=== PATIENT | female | born 1960 | race Caucasian/White ===

== ENCOUNTER → 2018-02-15 09:15 | Outpatient (REF) | payer MEDICAID, SELFPAY ==
[2018-02-15 11:27] LABS: Absolute Neutrophil Count 4.3 X10^3/uL (2.0-7.7); Basophil# 0.01 X10^3/uL; Basophil% 0.1 % (0-1); Eosinophil# 0.16 X10^3/uL; Eosinophils% 2.3 % (0-5); Hematocrit 45.7 % (37-47); Hemoglobin 14.8 g/dl (12.0-15.0); Mean Corp Hgb Conc 32.4 g/gl (32-36); Mean Corpuscular Hgb 29.6 pg (27.0-32.0); Mean Corpuscular Volume 91.4 fL (81-99); Mean Platelet Vol. 10.7 fl (6.2-12.0); Monocyte# 0.43 X10^3/uL; Monocyte% 6.1 % (0-10); Neutrophil % 61.4 % (47-70); Platelet Count 286 K/mm3 (150-450); RBC Distribution Width CV 13.5 % (11.6-14.6); RBC Distribution Width SD 44.2 fl (35.1-43.9)
[2018-02-15 11:30] LABS: POSITIVE DIFFERENTIAL NO
[2018-02-15 11:31] LABS: POSITIVE COUNT NO; POSITIVE MORPHOLOGY NO
[2018-02-15 11:57] LABS: AST(SGOT) 31 U/L (15-37); Alanine Aminotransfer ALT/SGPT 41 U/L (13-56); Albumin, Serum 3.3 g/dL (3.2-5.0); Alkaline Phosphatase 79 U/L (45-117); Anion Gap 11 (5-15); BUN 17 mg/dL (7-18); BUN/Creat Ratio 24.1 RATIO (10-20); Calcium,Total 8.8 mg/dL (8.5-10.1); Chloride 104 mmol/L (98-107); EST Glomerular Filtration Rate 91 mL/min (>60); Est Glom Filt Rate - Afr Amer 110 mL/min (>60); Globulin 3.4 g/dL (2.2-4.2); Glucose 118 mg/dL (74-106); Potassium 3.9 mmol/L (3.5-5.1); Protein, Total 6.7 g/dL (6.4-8.2); Sodium Level 144 mmol/L (136-145); Thyroid Stim Hormone (TSH) 0.76 uIU/mL (0.358-3.74)
== END ==
LOC: OLS.AVEB 09:15
PROVIDERS: Visit Provider Family Medicine
DX: E03.9 Hypothyroidism, unspecified (principal); R53.83 Other fatigue
CPT/HCPCS: 36415; 80053; 84443; 85025

== ENCOUNTER → 2018-05-16 08:00 | Outpatient (REF) | payer MEDICAID, SELFPAY ==
[2018-05-16 08:43] LABS: Absolute Lymphocyte Count 2.03 X10^3/ul (0.83-4.51); Absolute Neutrophil Count 5.3 X10^3/uL (2.0-7.7); Basophil# 0.02 X10^3/uL; Basophil% 0.2 % (0-1); Eosinophil# 0.19 X10^3/uL; Eosinophils% 2.4 % (0-5); Hematocrit 44.8 % (37-47); Hemoglobin 14.6 g/dl (12.0-15.0); Lymphocyte # 2.03 X10^3/ul (4.0); Lymphocyte % 25.2 % (19-41); Mean Corp Hgb Conc 32.6 g/gl (32-36); Mean Corpuscular Hgb 30.2 pg (27.0-32.0); Mean Corpuscular Volume 92.6 fL (81-99); Mean Platelet Vol. 10.5 fl (6.2-12.0); Monocyte# 0.52 X10^3/uL; Monocyte% 6.5 % (0-10); Neutrophil # 5.27 X10^3/uL (2.7-7.7); Neutrophil % 65.6 % (47-70); Platelet Count 266 K/mm3 (150-450); RBC Distribution Width CV 13.1 % (11.6-14.6); RBC Distribution Width SD 43.3 fl (35.1-43.9); Red Blood Count 4.84 M/mm3 (4.2-5.4)
[2018-05-16 08:47] LABS: POSITIVE COUNT NO; POSITIVE DIFFERENTIAL NO; POSITIVE MORPHOLOGY NO
[2018-05-16 08:50] LABS: Anion Gap 6 (5-15); BUN 17 mg/dL (7-18); BUN/Creat Ratio 27.8 RATIO (10-20); Calcium,Total 8.5 mg/dL (8.5-10.1); Chloride 103 mmol/L (98-107); Creatinine, Serum 0.61 mg/dL (0.55-1.02); EST Glomerular Filtration Rate 108 mL/min (>60); Est Glom Filt Rate - Afr Amer 130 mL/min (>60); Glucose 115 mg/dL (74-106); Potassium 3.7 mmol/L (3.5-5.1); Sodium Level 140 mmol/L (136-145)
[2018-05-17 08:37] LABS: Thyroid Stim Hormone (TSH) 0.56 uIU/mL (0.358-3.74)
== END ==
LOC: OLS.AVEC 08:00
PROVIDERS: Visit Provider Family Medicine
DX: E03.9 Hypothyroidism, unspecified (principal); F32.9 Major depressive disorder, single episode, unspecified; F41.9 Anxiety disorder, unspecified
CPT/HCPCS: 36415; 80048; 84443; 85025

== ENCOUNTER → 2018-05-25 14:09 | Outpatient (CLI) | payer MEDICAID, SELFPAY ==
--- NOTE | 2018-05-25 14:15 | BI_ITS ---
MAMMOGRAPHY - BILATERAL SCREENING REASON FOR EXAM: Female, 58 years old. Routine annual screening examination. PERTINENT HISTORY: Grandmother with breast cancer. Prior left breast biopsy. TECHNIQUE: Digital bilateral breast june (3D mammographic acquisition) in the CC and MLO projections. 2-D mediolateral oblique (MLO) and craniocaudad (CC) views of both breasts were obtained. CAD: Full Field Digital Mammography with Computer Added Detection was performed. COMPARISON: Comparison is made with prior osseous examination dated April 01, 2016. FINDINGS: Breast Composition: There are scattered areas of fibroglandular density. There are no dominant masses or suspicious calcifications. No other significant abnormalities are identified. There has been no significant change since the prior study. BI/SCREENING MAMM (CAD), BILAT IMPRESSION: Stable bilateral screening mammogram. Yearly follow-up mammogram recommended. (A) ASSESSMENT CATEGORY: BIRADS Category 1: Negative. A letter regarding these results will be sent to the patient by the facility within 30 days. Approximately 10% of breast cancers are not detected by mammography. A normal mammogram should not delay biopsy of a clinically suspicious abnormality. [id number] Electronically Signed: Donny Kumari MD at 8:55 EST Tel [phone], Service support ,
== END ==
PROVIDERS: Family Provider Family Medicine; PCP Student in an Organized Health Care Education/Training Program; Referring Provider Family Medicine; Visit Provider Family Medicine
DX: Z12.31 Encounter for screening mammogram for malignant neoplasm of breast (principal)
CPT/HCPCS: 77063; 77067

== ENCOUNTER → 2018-06-15 05:00 | Outpatient (REF) | payer MEDICAID, SELFPAY ==
[2018-06-15 09:41] LABS: Absolute Lymphocyte Count 2.64 X10^3/ul (0.83-4.51); Absolute Neutrophil Count 4.1 X10^3/uL (2.0-7.7); Basophil# 0.01 X10^3/uL; Basophil% 0.1 % (0-1); Eosinophil# 0.13 X10^3/uL; Eosinophils% 1.7 % (0-5); Hematocrit 44.1 % (37-47); Lymphocyte # 2.64 X10^3/ul (4.0); Lymphocyte % 35.4 % (19-41); Mean Corp Hgb Conc 31.7 g/gl (32-36); Mean Corpuscular Hgb 29.2 pg (27.0-32.0); Mean Corpuscular Volume 91.9 fL (81-99); Mean Platelet Vol. 10.3 fl (6.2-12.0); Monocyte# 0.57 X10^3/uL; Monocyte% 7.6 % (0-10); Neutrophil % 55.1 % (47-70); Platelet Count 274 K/mm3 (150-450); RBC Distribution Width SD 43.7 fl (35.1-43.9); White Blood Count 7.5 K/mm3 (4.4-11.0)
[2018-06-15 09:43] LABS: POSITIVE COUNT NO; POSITIVE DIFFERENTIAL NO; POSITIVE MORPHOLOGY NO
[2018-06-15 09:57] LABS: ALB/GLOB Ratio 0.9 RATIO (0.9-2.4); AST(SGOT) 30 U/L (15-37); Alanine Aminotransfer ALT/SGPT 40 U/L (13-56); Alkaline Phosphatase 82 U/L (45-117); Anion Gap 8 (5-15); BUN 16 mg/dL (7-18); BUN/Creat Ratio 24.7 RATIO (10-20); Calcium,Total 8.8 mg/dL (8.5-10.1); Chloride 103 mmol/L (98-107); Creatinine, Serum 0.65 mg/dL (0.55-1.02); EST Glomerular Filtration Rate 100 mL/min (>60); Est Glom Filt Rate - Afr Amer 121 mL/min (>60); Globulin 3.4 g/dL (2.2-4.2); Glucose 103 mg/dL (74-106); Potassium 3.6 mmol/L (3.5-5.1); Protein, Total 6.4 g/dL (6.4-8.2); Sodium Level 143 mmol/L (136-145)
== END ==
LOC: OLS.AVEC 05:00
PROVIDERS: Visit Provider Family Medicine
DX: E06.9 Thyroiditis, unspecified (principal)
CPT/HCPCS: 36415; 80053; 85025

== ENCOUNTER → 2018-07-15 04:30 | Outpatient (REF) | payer MEDICAID, SELFPAY ==
[2018-07-15 06:56] LABS: ALB/GLOB Ratio 0.9 RATIO (0.9-2.4); AST(SGOT) 25 U/L (15-37); Alanine Aminotransfer ALT/SGPT 46 U/L (13-56); Albumin, Serum 3.2 g/dL (3.2-5.0); Alkaline Phosphatase 85 U/L (45-117); Anion Gap 8 (5-15); BUN 12 mg/dL (7-18); BUN/Creat Ratio 17.7 RATIO (10-20); Calcium,Total 8.7 mg/dL (8.5-10.1); Chloride 102 mmol/L (98-107); Creatinine, Serum 0.68 mg/dL (0.55-1.02); EST Glomerular Filtration Rate 95 mL/min (>60); Est Glom Filt Rate - Afr Amer 115 mL/min (>60); Globulin 3.4 g/dL (2.2-4.2); Glucose 115 mg/dL (74-106); Potassium 3.8 mmol/L (3.5-5.1); Protein, Total 6.6 g/dL (6.4-8.2); Sodium Level 141 mmol/L (136-145)
[2018-07-15 07:18] LABS: Absolute Lymphocyte Count 3.01 X10^3/ul (0.83-4.51); Absolute Neutrophil Count 6.6 X10^3/uL (2.0-7.7); Basophil# 0.02 X10^3/uL; Basophil% 0.2 % (0-1); Eosinophils% 0.9 % (0-5); Hematocrit 45.3 % (37-47); Hemoglobin 14.6 g/dl (12.0-15.0); Lymphocyte # 3.01 X10^3/ul (4.0); Lymphocyte % 28.6 % (19-41); Mean Corp Hgb Conc 32.2 g/gl (32-36); Mean Corpuscular Hgb 29.6 pg (27.0-32.0); Mean Corpuscular Volume 91.7 fL (81-99); Mean Platelet Vol. 10.1 fl (6.2-12.0); Monocyte# 0.83 X10^3/uL; Monocyte% 7.9 % (0-10); Neutrophil # 6.56 X10^3/uL (2.7-7.7); Neutrophil % 62.3 % (47-70); Platelet Count 291 K/mm3 (150-450); RBC Distribution Width CV 13.2 % (11.6-14.6); RBC Distribution Width SD 43.8 fl (35.1-43.9); Red Blood Count 4.94 M/mm3 (4.2-5.4); White Blood Count 10.5 K/mm3 (4.4-11.0)
[2018-07-15 07:24] LABS: POSITIVE COUNT NO; POSITIVE DIFFERENTIAL NO; POSITIVE MORPHOLOGY NO
== END ==
LOC: OLS.AVED 04:30
PROVIDERS: Visit Provider Family Medicine
DX: E06.9 Thyroiditis, unspecified (principal)
CPT/HCPCS: 36415; 80053; 85025

== ENCOUNTER → 2018-08-14 07:45 | Outpatient (REF) | payer MEDICAID, SELFPAY ==
[2018-08-14 08:28] LABS: Absolute Lymphocyte Count 2.72 X10^3/ul (0.83-4.51); Absolute Neutrophil Count 6.4 X10^3/uL (2.0-7.7); Basophil# 0.02 X10^3/uL; Basophil% 0.2 % (0-1); Eosinophil# 0.09 X10^3/uL; Eosinophils% 0.9 % (0-5); Hematocrit 43.2 % (37-47); Hemoglobin 14.1 g/dl (12.0-15.0); Lymphocyte # 2.72 X10^3/ul (4.0); Lymphocyte % 27.3 % (19-41); Mean Corp Hgb Conc 32.6 g/gl (32-36); Mean Corpuscular Volume 91.9 fL (81-99); Mean Platelet Vol. 10.7 fl (6.2-12.0); Monocyte# 0.68 X10^3/uL; Monocyte% 6.8 % (0-10); Neutrophil # 6.44 X10^3/uL (2.7-7.7); Neutrophil % 64.6 % (47-70); Platelet Count 268 K/mm3 (150-450); RBC Distribution Width CV 13.4 % (11.6-14.6); RBC Distribution Width SD 44.1 fl (35.1-43.9)
[2018-08-14 08:29] LABS: POSITIVE COUNT NO; POSITIVE DIFFERENTIAL NO; POSITIVE MORPHOLOGY NO
[2018-08-14 08:51] LABS: ALB/GLOB Ratio 0.9 RATIO (0.9-2.4); AST(SGOT) 24 U/L (15-37); Alanine Aminotransfer ALT/SGPT 43 U/L (13-56); Alkaline Phosphatase 76 U/L (45-117); Anion Gap 10 (5-15); BUN 15 mg/dL (7-18); BUN/Creat Ratio 26.3 RATIO (10-20); Calcium,Total 8.6 mg/dL (8.5-10.1); Chloride 102 mmol/L (98-107); Creatinine, Serum 0.57 mg/dL (0.55-1.02); EST Glomerular Filtration Rate 116 mL/min (>60); Est Glom Filt Rate - Afr Amer 141 mL/min (>60); Globulin 3.4 g/dL (2.2-4.2); Glucose 124 mg/dL (74-106); Potassium 3.4 mmol/L (3.5-5.1); Protein, Total 6.4 g/dL (6.4-8.2); Sodium Level 142 mmol/L (136-145)
[2018-08-16 08:53] LABS: Thyroid Stim Hormone (TSH) 0.39 uIU/mL (0.358-3.74)
== END ==
LOC: OLS.AVED 07:45
PROVIDERS: Visit Provider Family Medicine
DX: E06.2 Chronic thyroiditis with transient thyrotoxicosis (principal)
CPT/HCPCS: 36415; 80053; 84443; 85025

== ENCOUNTER → 2018-09-30 06:00 | Outpatient (REF) | payer MEDICAID, SELFPAY ==
[2018-09-30 09:04] LABS: Anion Gap 6 (5-15); BUN 15 mg/dL (7-18); BUN/Creat Ratio 19.1 RATIO (10-20); Calcium,Total 8.5 mg/dL (8.5-10.1); Chloride 98 mmol/L (98-107); Creatinine, Serum 0.79 mg/dL (0.55-1.02); EST Glomerular Filtration Rate 80 mL/min (>60); Est Glom Filt Rate - Afr Amer 97 mL/min (>60); Glucose 115 mg/dL (74-106); Potassium 3.5 mmol/L (3.5-5.1); Sodium Level 136 mmol/L (136-145)
== END ==
LOC: OLS.AVEC 06:00
PROVIDERS: Visit Provider Family Medicine
DX: I50.9 Heart failure, unspecified (principal)
CPT/HCPCS: 36415; 80048

== ENCOUNTER → 2018-10-12 17:47 | Outpatient (CLI) | payer MEDICAID, SELFPAY ==
[2018-10-12 20:14] LABS: M R Staph aureus DNA By PCR Negative (Negative); Probe Check PASS; Specimen Processing Control PASS; Staph aureus DNA By PCR NEGATIVE (Negative)
== END ==
PROVIDERS: Family Provider Family Medicine; PCP Student in an Organized Health Care Education/Training Program; Referring Provider Podiatrist; Visit Provider Podiatrist
DX: L60.0 Ingrowing nail (principal)
CPT/HCPCS: 87070; 87075; 87077; 87186; 87205; 87640

== ENCOUNTER → 2018-10-13 05:00 | Outpatient (REF) | payer MEDICAID, SELFPAY ==
[2018-10-13 06:50] LABS: Absolute Lymphocyte Count 1.38 X10^3/ul (0.83-4.51); Absolute Neutrophil Count 2.4 X10^3/uL (2.0-7.7); Basophil# 0.03 X10^3/uL; Basophil% 0.7 % (0-1); Eosinophil# 0.04 X10^3/uL; Eosinophils% 0.9 % (0-5); Hematocrit 25.3 % (37-47); Hemoglobin 8.1 g/dl (12.0-15.0); Lymphocyte # 1.38 X10^3/ul (4.0); Mean Corpuscular Hgb 30.8 pg (27.0-32.0); Mean Corpuscular Volume 96.2 fL (81-99); Mean Platelet Vol. 9.5 fl (6.2-12.0); Monocyte# 0.42 X10^3/uL; Monocyte% 9.7 % (0-10); Neutrophil # 2.44 X10^3/uL (2.7-7.7); Neutrophil % 56.7 % (47-70); Platelet Count 306 K/mm3 (150-450); RBC Distribution Width CV 14.2 % (11.6-14.6); RBC Distribution Width SD 49.4 fl (35.1-43.9); Red Blood Count 2.63 M/mm3 (4.2-5.4); White Blood Count 4.3 K/mm3 (4.4-11.0)
[2018-10-13 06:53] LABS: POSITIVE COUNT NO; POSITIVE DIFFERENTIAL NO; POSITIVE MORPHOLOGY NO
== END ==
LOC: OLS.AVED 05:00
PROVIDERS: Visit Provider Family Medicine
DX: R53.83 Other fatigue (principal)
CPT/HCPCS: 36415; 85025

== ENCOUNTER → 2018-11-12 | Outpatient (REF) | payer MEDICAID, SELFPAY ==
[2018-11-12 08:09] LABS: Absolute Neutrophil Count 6.8 X10^3/uL (2.0-7.7); Basophil# 0.02 X10^3/uL; Basophil% 0.2 % (0-1); Eosinophil# 0.12 X10^3/uL; Hematocrit 43.2 % (37-47); Hemoglobin 14.1 g/dl (12.0-15.0); Lymphocyte % 31.6 % (19-41); Mean Corp Hgb Conc 32.6 g/gl (32-36); Mean Corpuscular Hgb 29.7 pg (27.0-32.0); Mean Corpuscular Volume 90.9 fL (81-99); Monocyte# 1.01 X10^3/uL; Monocyte% 8.6 % (0-10); Neutrophil # 6.83 X10^3/uL (2.7-7.7); Neutrophil % 58.3 % (47-70); POSITIVE COUNT NO; POSITIVE DIFFERENTIAL NO; POSITIVE MORPHOLOGY NO; Platelet Count 287 K/mm3 (150-450); RBC Distribution Width CV 13.3 % (11.6-14.6); RBC Distribution Width SD 43.4 fl (35.1-43.9); Red Blood Count 4.75 M/mm3 (4.2-5.4); White Blood Count 11.7 K/mm3 (4.4-11.0)
== END | disposition home or self-care (01) ==
LOC: OLS.AVEC 05:00
PROVIDERS: Visit Provider Family Medicine
DX: E06.9 Thyroiditis, unspecified (principal); G89.29 Other chronic pain
CPT/HCPCS: 36415; 85025

== ENCOUNTER 2018-11-15 11:56 | Emergency (ER) | payer MEDICAID, SELFPAY ==
[2018-11-15 11:57] VITALS: BP 138/81; PULSE 79; RESP 15; TEMP 36.8; O2SAT 90; BMI 45.0
--- NOTE | 2018-11-15 12:11 | EKG12_ITS ---
Test Reason : LOW POTASSIUM Blood Pressure : / mmHG Vent. Rate : 072 BPM Atrial Rate : 072 BPM P-R Int : 162 ms QRS Dur : 098 ms QT Int : 436 ms P-R-T Axes : 091 -32 018 degrees QTc Int : 477 ms Sinus rhythm with Premature atrial complexes Left axis deviation Pulmonary disease pattern Abnormal ECG Confirmed by MAX DONATO ([id number]), editorial manager DELROY HORTON ([id number]) on 11/19/2018 10:56:07 AM Referred By: Confirmed By:MAX DONATO
--- NOTE | 2018-11-15 12:47 | ED.RN ---
POTASSIUM 2.5, AWARE.
[2018-11-15 12:48] LABS: Anion Gap 3 (5-15); BUN 12 mg/dL (7-18); Calcium,Total 8.9 mg/dL (8.5-10.1); Chloride 93 mmol/L (98-107); EST Glomerular Filtration Rate 91 mL/min (>60); Est Glom Filt Rate - Afr Amer 110 mL/min (>60); Estimated Creatinine Clearance 84.01 ml/min; Glucose 132 mg/dL (74-106); Potassium 2.5 mmol/L (3.5-5.1); Sodium Level 137 mmol/L (136-145)
--- NOTE | 2018-11-15 14:13 | ED.DCSUM_ITS ---
History of Present Illness Chief Complaint: Abn Labs Informant: Patient Onset: Days Context: Gradual Onset Timing: Continuous Quality: Fatigue, cramping Location: Not applicable Current Severity: Mild Maximum Severity: Moderate Worsened by: Nothing per patient Relieved by: Nothing per patient Associated Symptoms: Weakness and cramping Narrative: Patient is a middle-aged woman who is Lasix was increased from 10 mg twice daily to 80 mg twice daily 2 months ago. She had blood work on November 12. She was notified that her potassium is 2.3. She has no other complaints. Prior similar symptoms: Yes Recent Illness/Hospitalization: No - Past Medical History (1) History of lymphedema Status: Acute (2) History of thyroid disease Status: Acute Past Medical History - Allergies and Home Meds Allergies/Adverse Reactions: Allergies bee pollen Allergy (Mild, Verified 11/15/18 12:00) Unknown honey Allergy (Mild, Verified 11/15/18 12:00) Other Primary Care Physician: Will Stubbs DO [Primary Care Provider] - Prior records reviewed: Yes Surgical History: no surgical history Lives: Alone Smoking Status: Never smoker Alcohol: None Review of Systems General: Denies: Chills, Fever, Sweats Eyes: Denies: Visual changes - bilaterally, Diplopia ENT: Denies: Bilateral ear pain, Rhinorrhea, Sore throat Cardiovascular: Denies: Chest pain, Palpitations Respiratory: Denies: Dyspnea, Cough, Dyspnea on exertion Gastrointestinal: Denies: Abdominal pain, Nausea, Vomiting, Diarrhea, Melena, Hematochezia Genitourinary: Denies: Dysuria, Hematuria, Frequency Musculoskeletal: Reports: Neck pain - Chronic neck pain. Denies: Myalgias, Arthralgias, Back pain, Swelling, Extremity Pain Skin: Denies: Rash, Wounds Neurological: Denies: Headache, Weakness, Numbness Psych: Reports: Depression Allergy: Denies: Uticaria, Swelling of the mouth Physical Exam Vital Signs/Narrative: Vital Signs Temp Pulse Resp BP Pulse Ox 11/15/18 11:57 98.2 F 79 15 138/81 H 90 General: Well nourished, Well developed, Obese, No Acute Distress Head: Normocephalic, Atraumatic Eyes: Perrl, EOMI ENT: Moist mucous membranes, No rhinorrhea Neck: Supple, Nontender Cardiovascular: Regular rate, Regular rhythm, No murmurs, Normal S1, Normal S2 Respiratory: No distress, CTA bilaterally, Chest nontender Abdomen: Soft, Nontender, Nondistended, Normal bowel sounds Back: Nontender, Normal Inspection Extremities: Nontender, No edema Skin: Normal color, No rash Neurological: Alert, Oriented x3, Cranial nerves II-XII grossly intact, Normal Strength, Normal Sensation, Normal DTR Psychological: Depressed Diagnostic/Tx/Re-eval Laboratory Results 11/15/18 12:16 Sodium 137 Potassium 2.5 L* Chloride 93 L Carbon Dioxide 41.0 H Anion Gap 3 L BUN 12 Creatinine 0.70 Estim Creat Clear Calc 84.01 Est GFR (MDRD) Af Amer 110 Est GFR (MDRD) Non-Af 91 BUN/Creatinine Ratio 17.0 Glucose 132 H Calcium 8.9 - EKG Initial EKG Interpretation: Sinus Rhythm - Ventricular rate is 72. [place] is to the left. There is evidence of pulmonary disease. [place] interval, QT interval are normal. - Medical Decision Making Patient was treated with 40 mEq of potassium chloride solution and basic metabolic panel was repeated. Suspect hypokalemia secondary to increase in Lasix dose from 10 mg twice daily to 40 mg twice daily. She received an additional dose of potassium chloride solution 1 hour after first dose. Will discharge to home with prescription for oral potassium. EKG was obtained and there is no changes to suggest hypokalemia. Patient CO2 is elevated. Prior labs indicate CO2 was elevated. Suspect CO2 elevation secondary to undiagnosed obstructive sleep apnea and morbid obesity. ED Disposition - Plan for ED Patient: Disposition: Home or Assisted Living Diagnosis: Hypokalemia due to loss of potassium Instructions: ED Potassium Deficiency Prescriptions: Potassium Chloride [Klor-Con 10] 10 meq PO BID #60 tablet.er Referrals: Will Stubbs DO [Primary Care Provider] - 1 Week Additional Instructions: Call for repeat potassium in 1 week.
[2018-11-15 14:21] VITALS: BP 131/64; PULSE 81; RESP 20; O2SAT 99
--- NOTE | 2018-11-15 15:01 | PCA ---
CALL [facility] FOR TRANSPORT WILL HERE AT 4;30 PM
[2018-11-15 17:04] VITALS: BP 138/74; PULSE 69; RESP 15; O2SAT 96
== END 2018-11-15 17:05 | disposition home or self-care (01) ==
PROVIDERS: Emergency Provider Emergency Medicine; Family Provider Student in an Organized Health Care Education/Training Program; PCP Student in an Organized Health Care Education/Training Program
DX: E87.6 Hypokalemia (principal); D64.9 Anemia, unspecified; E03.9 Hypothyroidism, unspecified
CPT/HCPCS: 36415; 80048; 80053; 84443; 93005; 99285

== ENCOUNTER → 2018-11-15 | Outpatient (REF) | payer MEDICAID, SELFPAY ==
[2018-11-15 09:53] LABS: ALB/GLOB Ratio 0.9 RATIO (0.9-2.4); AST(SGOT) 37 U/L (15-37); Alanine Aminotransfer ALT/SGPT 50 U/L (13-56); Albumin, Serum 3.2 g/dL (3.2-5.0); Alkaline Phosphatase 78 U/L (45-117); Anion Gap 8 (5-15); BUN 12 mg/dL (7-18); BUN/Creat Ratio 18.2 RATIO (10-20); Calcium,Total 8.8 mg/dL (8.5-10.1); Chloride 94 mmol/L (98-107); Creatinine, Serum 0.66 mg/dL (0.55-1.02); EST Glomerular Filtration Rate 98 mL/min (>60); Est Glom Filt Rate - Afr Amer 119 mL/min (>60); Globulin 3.5 g/dL (2.2-4.2); Glucose 128 mg/dL (74-106); Potassium 2.3 mmol/L (3.5-5.1); Protein, Total 6.7 g/dL (6.4-8.2); Sodium Level 140 mmol/L (136-145); Thyroid Stim Hormone (TSH) 0.56 uIU/mL (0.358-3.74)
[2018-11-15 11:57] VITALS: BMI 45.0
== END | disposition home or self-care (01) ==
LOC: OLS.AVEC 04:00
PROVIDERS: Visit Provider Family Medicine
DX: D64.9 Anemia, unspecified (principal); E03.9 Hypothyroidism, unspecified
CPT/HCPCS: 36415; 80053; 84443

== ENCOUNTER → 2018-11-23 | Outpatient (REF) | payer MEDICAID, SELFPAY ==
[2018-11-15 11:57] VITALS: BMI 45.0
[2018-11-23 07:42] LABS: Anion Gap 6 (5-15); BUN 13 mg/dL (7-18); BUN/Creat Ratio 20.2 RATIO (10-20); Calcium,Total 8.5 mg/dL (8.5-10.1); Chloride 102 mmol/L (98-107); Creatinine, Serum 0.64 mg/dL (0.55-1.02); EST Glomerular Filtration Rate 101 mL/min (>60); Est Glom Filt Rate - Afr Amer 123 mL/min (>60); Glucose 122 mg/dL (74-106); Potassium 3.3 mmol/L (3.5-5.1); Sodium Level 142 mmol/L (136-145)
== END | disposition home or self-care (01) ==
LOC: OLS.AVEC 06:50
PROVIDERS: Visit Provider Family Medicine
DX: E87.6 Hypokalemia (principal)
CPT/HCPCS: 36415; 80048

== ENCOUNTER 2019-04-13 10:37 | Outpatient (RCR) | payer SELFPAY ==
--- NOTE | 2019-07-15 11:17 | HP.OT.NRP ---
HP - Discharge Summary - Patient Information ELDON HUANG was seen in my office for initial evaluation on 04/13/19. The following Plan of Care was established for this patient: This patient was last seen in our office 04/13/19. Pertinent comments regarding their Occupational therapy will appear below: pt was seen for OT eval only- she did not return for further OT apts. and due to time lapse in care pt d/c. At this point I will be discontinuing this patient from occupational therapy. I would be happy to see this patient again in the future if found appropriate by the physician. Thank you! Paz Velasco, OTR/L, CHT
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
== END 2019-04-13 19:00 | disposition home or self-care (01) ==
LOC: OT 10:37
PROVIDERS: Family Provider Family Medicine; PCP Family Medicine; Referring Provider Family Medicine; Visit Provider Family Medicine
DX: I89.0 Lymphedema, not elsewhere classified (principal)
CPT/HCPCS: 97166

== ENCOUNTER → 2019-06-01 12:58 | Outpatient (CLI) | payer MEDICAID, SELFPAY ==
--- NOTE | 2019-06-01 13:03 | BI_ITS ---
MAMMOGRAPHY - BILATERAL SCREENING REASON FOR EXAM: Female, 59 years old. Routine annual screening examination. PERTINENT HISTORY: Grandmother with breast cancer. Prior left breast biopsy. TECHNIQUE: Digital bilateral breast randy (3D mammographic acquisition) in the CC and MLO projections. 2-D mediolateral oblique (MLO) and craniocaudad (CC) views of both breasts were obtained. CAD: Full Field Digital Mammography with Computer Added Detection was performed. COMPARISON: Comparison is made with prior examination dated May 25, 2018. FINDINGS: Breast Composition: There are scattered areas of fibroglandular density. There are no dominant masses or suspicious calcifications. No other significant abnormalities are identified. There has been no significant change since the prior study. BI/SCREEN MAMM (CAD) W/RANDY BILAT IMPRESSION: Stable bilateral screening mammogram. Yearly follow-up mammogram recommended. (A) ASSESSMENT CATEGORY: BIRADS Category 1: Negative. A letter regarding these results will be sent to the patient by the facility within 30 days. Approximately 10% of breast cancers are not detected by mammography. A normal mammogram should not delay biopsy of a clinically suspicious abnormality. [id number] Electronically Signed: Donny Kumari, at 14:26 EST , Service support ,
== END ==
PROVIDERS: Family Provider Family Medicine; PCP Family Medicine; Referring Provider Family Medicine; Visit Provider Family Medicine
DX: Z12.31 Encounter for screening mammogram for malignant neoplasm of breast (principal)
CPT/HCPCS: 77063; 77067

== ENCOUNTER → 2019-08-26 12:58 | Outpatient (CLI) | payer MEDICAID, SELFPAY ==
[2019-08-24 13:36] VITALS: BMI 46.7
--- NOTE | 2019-08-26 13:00 | US_ITS ---
STUDY: ULTRASOUND TRANSVAGINAL CLINICAL: Female, 59 years old. Bleeding. Previous bilateral oophorectomy. TECHNIQUE: Transvaginal COMPARISON: None. FINDINGS: Normal uterine size measuring 9.6 x 4.1 x 5.3 cm in maximal craniocaudal dimension. There are no myometrial masses. Normal endometrial thickness measuring 10 mm. Endometrial echoes are hyperechoic. There are no endometrial masses, and there is no fluid in the endometrial cavity. Normal uterine cervix. Probable 5 mm calcification in the cervix. Both ovaries are surgically absent. There is no free fluid in the pelvis. Polycystic ovary disease: No. US/Transvaginal Non- IMPRESSION: No significant abnormality. Electronically Signed: Jl Ramirez MD at 16:00 EST , Service support ,
== END ==
PROVIDERS: PCP Family Medicine; Referring Provider Nurse Practitioner Women's Health; Visit Provider Nurse Practitioner Women's Health
DX: N93.9 Abnormal uterine and vaginal bleeding, unspecified (principal)
CPT/HCPCS: 76830

== ENCOUNTER 2019-09-13 10:00 | Day surgery (SDC) | payer MEDICARE, MEDICAID, SELFPAY ==
[2019-08-24 13:36] VITALS: BMI 46.7
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
[2019-09-13] VITALS (7 sets, daily range): BP systolic 125–150; BP diastolic 68–76; PULSE 70–80; RESP 16; TEMP 36.3–36.6; O2SAT 93–99; BMI 46.5
[2019-09-13] MEDS: Lactated Ringers 1,000 ML 125 ML IV (07:00)
--- NOTE | 2019-09-13 10:08 | EKG12_ITS ---
Test Reason : PREOP Blood Pressure : / mmHG Vent. Rate : 073 BPM Atrial Rate : 073 BPM P-R Int : 160 ms QRS Dur : 094 ms QT Int : 410 ms P-R-T Axes : 037 -34 026 degrees QTc Int : 451 ms Normal sinus rhythm Left axis deviation Abnormal ECG When compared with ECG of 15-NOV-2018 12:19, Premature atrial complexes are no longer Present Confirmed by CÉSAR MONTGOMERY, CODY ([id number]), technical editor NAOMY KAISER ([id number] on 09/19/2019 4:09:52 PM Referred By: Barbara Shell Confirmed By:CODY LINDSEY MD
--- NOTE | 2019-09-13 10:18 | OP.PCM_ITS ---
Problem List (1) Postmenopausal bleeding Status: Acute (2) Major depressive disorder Status: Chronic (3) Contracture, right hand Status: Chronic (4) Neuromuscular dysfunction of bladder Status: Chronic (5) Quadriplegia Status: Acute (6) Hypokalemia Status: Acute (7) Chronic pain Status: Chronic (8) Muscle weakness Status: Acute (9) Thyroiditis Status: Acute (10) Drug induced constipation Status: Chronic (11) Migraines Status: Chronic (12) Edema Status: Acute (13) Vitamin D deficiency Status: Acute (14) GERD (gastroesophageal reflux disease) Status: Chronic (15) Autonomic neuropathy Status: Chronic (16) Osteoporosis Status: Chronic (17) Diabetes Status: Chronic (18) History of lymphedema Status: Acute (19) History of thyroid disease Status: Acute Report of Operation Date of Procedure: 09/13/19 Pre-Operative Diagnosis: postmenopausal bleeding Post-Operative Diagnosis: same plus polyp of endometrium and vaginal polyp Surgery/Procedure Performed:: d and c hysteroscopy symphion resection and vaginal polyp removal Description of Surgical Findings:: endometrial polyp and right vaginal wall polyp Type of Anesthesia:: MAC Special Medications: silver nitrate Specimen's removed: emc polyp vaginal polyp Drains: none Estimated Blood Loss (mL): 25 Fluids Replaced: crystalloid Description of Procedure: Patient was prepped and draped in a normal sterile fashion under MAC anesthesia. A weighted speculum was placed in the vagina and the anterior lip of the cervix was grasped with a single-tooth tenaculum. A right vaginal wall polyp was noted and cut off the base and treated with silver nitrate. Cervix was progressively dilated to allow passage of a 5 mm hysteroscope. The lining was fully visualized and noted to have an endometrial polyp.. Uterine sounded to 9 cm. Using the symphion device, the polyp was progressively removed without co mplications. Direct visual curettage was performed using the device , and all specimens were sent to pathology. All instruments were removed from the vagina and excellent hemostasis was noted. Patient was awoken and taken to recovery in stable condition. Grafts/Implants Used: none - Complications none Multi Select Codes - Urinary/Genital Urinary/Genital CPT Codes: 55059 Hysteroscopy,EMC, Polypectomy - operative resection with symphion
--- NOTE | 2019-09-13 10:18 | DCINST_ITS ---
Discharge Diet: No Restrictions Discharge Activity: Return to Normal Activity, May Shower, May Take a Tub Bath Allergies/Adverse Reactions: Allergies aspartame Allergy (Mild, Verified 08/24/19 13:25) unknown codeine Allergy (Mild, Verified 08/24/19 13:25) vomit diphenhydramine Allergy (Mild, Verified 08/24/19 13:25) aggressive honey Allergy (Mild, Verified 08/24/19 13:25) Other mushroom Allergy (Mild, Verified 08/24/19 13:25) unknown bee stings Allergy (Uncoded 09/09/19 09:48) Anaphylaxis Medications to take at Discharge acetaminophen 325 mg tablet 325 mg PO Q6H PRN 05/03/18 aspirin 81 mg tablet,delayed release 81 mg PO DAILY 05/03/18 baclofen 20 mg tablet 20 mg PO TID 05/03/18 cholecalciferol (vitamin D3) 25 mcg (1,000 unit) capsule 1,000 unit PO DAILY 05/03/18 diazepam 2 mg tablet 2 mg PO BID PRN 05/03/18 furosemide 20 mg tablet 20 mg PO DAILY 05/03/18 omeprazole 20 mg capsule,delayed release 20 mg PO DAILY 05/03/18 oxycodone 5 mg capsule 5 mg PO 4X/DAY PRN PRN 05/03/18 sennosides 8.6 mg tablet 8.6 mg PO BID PRN 05/03/18 Lactobacillus rhamnosus GG 10 billion cell capsule 1 cap PO DAILY 08/24/19 viqafre-cmocokdafhqdl-eosgonqu 250 mg-250 mg-65 mg tablet 1 tab PO ONCE 08/24/19 bisacodyl 10 mg rectal suppository 10 mg RC DAILY PRN 08/24/19 epinephrine 0.3 mg/0.3 mL injection, auto-injector 0.3 mg IM ONCE PRN 08/24/19 fluticasone propionate 50 mcg/actuation nasal spray,suspension 2 spray INTRANASAL DAILY 08/24/19 gabapentin 400 mg capsule 600 mg PO TID cap 08/24/19 ibuprofen 600 mg tablet 600 mg PO Q8H PRN 08/24/19 magnesium hydroxide 400 mg/5 mL oral suspension 5 ml PO DAILY PRN 08/24/19 menthol 4 % topical gel 1 applic TOPICAL DAILY 08/24/19 mineral oil 118 ml RC ONCE PRN 08/24/19 ondansetron HCl 4 mg tablet 4 mg PO Q8H PRN 08/24/19 potassium chloride 10 mEq tablet,extended release 10 meq PO BID 08/24/19 spironolactone 25 mg tablet 25 mg PO DAILY 08/24/19 Orders to be completed after discharge: Type & Screen Time Frame: 09/13/19, Facility: [facility], Location: Laboratory CBC-Complete Blood Cnt No Diff Time Frame: 09/13/19, Facility: [facility], Location: Laboratory Comprehensive Metabolic Profil Time Frame: 09/13/19, Facility: [facility], Location: Laboratory Primary Care Physician: Umair Rosario MD [Primary Care Provider] - Test Results: Test results from this visit will be discussed in further detail at your follow- up appointment, if applicable. Please Follow Up With: Barbara Shell MD - [phone]
[2019-09-13 10:42] LABS: Hematocrit 47.8 % (37-47); Mean Corp Hgb Conc 33.5 g/dL (32-36); Mean Corpuscular Hgb 31.3 pg (27.0-32.0); Mean Corpuscular Volume 93.5 fL (81-99); Mean Platelet Vol. 10.2 fl (6.2-12.0); Platelet Count 283 K/mm3 (150-450); RBC Distribution Width CV 13.2 % (11.6-14.6); Red Blood Count 5.11 M/mm3 (4.2-5.4); White Blood Count 11.5 K/mm3 (4.4-11.0)
[2019-09-13 10:56] LABS: Bedside Glucose 141 mg/dL (70-110)
[2019-09-13 11:08] LABS: ALB/GLOB Ratio 0.9 RATIO (0.9-2.4); AST(SGOT) 31 U/L (15-37); Alanine Aminotransfer ALT/SGPT 49 U/L (13-56); Albumin, Serum 3.5 g/dL (3.2-5.0); Alkaline Phosphatase 86 U/L (45-117); Anion Gap 6 (5-15); BUN 16 mg/dL (7-18); BUN/Creat Ratio 22.9 RATIO (10-20); Calcium,Total 9.4 mg/dL (8.5-10.1); Chloride 105 mmol/L (98-107); EST Glomerular Filtration Rate 92 mL/min (>60); Est Glom Filt Rate - Afr Amer 111 mL/min (>60); Estimated Creatinine Clearance 86.23 ml/min; Globulin 4.1 g/dL (2.2-4.2); Glucose 141 mg/dL (74-106); Potassium 4.3 mmol/L (3.5-5.1); Protein, Total 7.6 g/dL (6.4-8.2); Sodium Level 136 mmol/L (136-145)
--- NOTE | 2019-09-13 11:30 | EMB_PTH ---
PATIENT: CLAIRE HUANG LOC: [facility] [place] U#:[id number] AGE/SX: 59/F ROOM: RE09/13/[address]: Dr. Barbara Shell MD : 1960 BED: DIS: 09/13/2019 SPEC #: [id number] RECD: 09/13/19 13:04 STATUS: ANANDA RUDOLPH #: [id number] SE: 09/13/19 11:[address]: Barbara Shell DEPT: SURGICAL PATHOLOGY RECD BY: Murray Orozco ENTERED: 09/13/19 13:39 SP TYPE: ENDOM BX/C OTHR DR: Dr. mUair Rosario MD Tissues: Endometrium, NOS Procedures: Surgery Specimen Level IV HEADER OPERATION: Hysteroscopy, Symphion D & C PRE-OP DIAGNOSIS: Postmenopausal bleeding TISSUE SUBMITTED: Endometrial curettings and polyp MICROSCOPIC DIAGNOSIS Endometrial curettings and polyp: Simple cystic endometrial hyperplasia without atypia. Fragments of myometrium with changes suspicious for adenomyosis. Fragments of benign ectocervical epithelium. CLAUDIO:gertrude 09/14/19 MICROSCOPIC DESCRIPTION Slides are reviewed. GROSS DESCRIPTION Received in fixative is one container labeled with the patient's name and designated endometrial curettings and polyp. The specimen consists of multiple irregular fragments of kidd-pink soft tissue that in aggregate measure 3.5 x 2.5 x 1 cm. The specimen is totally submitted in three cassettes. / CLAUDIO:gertrude 09/13/19 TC:5 CPT: 99158
[2019-09-13] MEDS: Lubricating Jelly 60 GM Tube 30 GM TOPICAL (11:48)
[2019-09-13] MEDS: Silver Nitrate (BKC) 1 EACH (11:51)
== END 2019-09-13 13:15 | disposition home or self-care (01) ==
LOC: SDC 10:05 → AC 10:05
PROVIDERS: PCP Family Medicine; Referring Provider Obstetrics & Gynecology; Visit Provider Obstetrics & Gynecology
PROC: 0UB98ZZ Excision of Uterus, Via Natural or Artificial Opening Endoscopic (ICD-10-PCS; CPT 58558; principal; 2019-09-13 11:15)
DX: N85.01 Benign endometrial hyperplasia (principal); N95.0 Postmenopausal bleeding; G82.50 Quadriplegia, unspecified; G89.29 Other chronic pain; N31.9 Neuromuscular dysfunction of bladder, unspecified; E06.9 Thyroiditis, unspecified; E55.9 Vitamin D deficiency, unspecified; K21.9 Gastro-esophageal reflux disease without esophagitis; E11.9 Type 2 diabetes mellitus without complications; G90.9 Disorder of the autonomic nervous system, unspecified; Z79.82 Long term (current) use of aspirin; Z79.899 Other long term (current) drug therapy; G43.909 Migraine, unspecified, not intractable, without status migrainosus
CPT/HCPCS: 00952; 58558; 36415; 80053; 82962; 85027; 86850; 86900; 86901; 88305; 93005; J7120

== ENCOUNTER → 2020-09-07 10:58 | Outpatient (CLI) | payer MEDICARE, MEDICAID, SELFPAY ==
[2020-09-04 14:19] VITALS: BMI 45.7
[2020-09-05 13:18] VITALS: BMI 45.7
== END ==
PROVIDERS: PCP Family Medicine; Referring Provider Internal Medicine Cardiovascular Disease; Visit Provider Internal Medicine Cardiovascular Disease
DX: Z01.810 Encounter for preprocedural cardiovascular examination (principal)
CPT/HCPCS: 93306

== ENCOUNTER 2020-09-11 05:17 | Day surgery (SDC) | payer MEDICARE, MEDICAID, SELFPAY ==
[2020-04-12 14:48] VITALS: BMI 46.5
--- NOTE | 2020-09-04 13:07 | EKG12_ITS ---
Test Reason : PRE OP Blood Pressure : / mmHG Vent. Rate : 070 BPM Atrial Rate : 070 BPM P-R Int : 178 ms QRS Dur : 080 ms QT Int : 392 ms P-R-T Axes : 048 -33 037 degrees QTc Int : 423 ms Normal sinus rhythm Left axis deviation Low voltage QRS Poor R wave progression Abnormal ECG Confirmed by BINTA MONTGOMERY, ANA LUISA ([id number]), school photograph editor DELROY HORTON ([id number]) on 09/05/2020 9:28:38 AM Referred By: Barbara Shell Confirmed By:ANA LUISA JUDD MD
[2020-09-04 13:55] LABS: Hemoglobin 15.7 g/dL (12.0-15.0); Mean Corp Hgb Conc 31.4 g/dL (32-36); Mean Corpuscular Hgb 29.8 pg (27.0-32.0); Mean Corpuscular Volume 95.1 fL (81-99); Mean Platelet Vol. 10.6 fl (6.2-12.0); Platelet Count 298 K/mm3 (150-450); RBC Distribution Width CV 13.1 % (11.6-14.6); RBC Distribution Width SD 46.4 fl (35.1-43.9); Red Blood Count 5.26 M/mm3 (4.2-5.4); White Blood Count 8.6 K/mm3 (4.4-11.0)
[2020-09-04 14:40] LABS: AST(SGOT) 38 U/L (15-37); Alanine Aminotransfer ALT/SGPT 58 U/L (13-56); Albumin, Serum 3.5 g/dL (3.2-5.0); Alkaline Phosphatase 73 U/L (45-117); Anion Gap 4 (5-15); BUN 15 mg/dL (7-18); BUN/Creat Ratio 21.3 RATIO (10-20); Chloride 104 mmol/L (98-107); EST Glomerular Filtration Rate 91 mL/min (>60); Est Glom Filt Rate - Afr Amer 110 mL/min (>60); Globulin 3.6 g/dL (2.2-4.2); Glucose 134 mg/dL (74-106); Potassium 4.2 mmol/L (3.5-5.1); Protein, Total 7.1 g/dL (6.4-8.2); Sodium Level 141 mmol/L (136-145)
[2020-09-05 13:18] VITALS: BMI 45.7
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
[2020-09-11] VITALS (16 sets, daily range): BP systolic 100–126; BP diastolic 49–69; PULSE 64–78; RESP 12–18; TEMP 35.9–36.7; O2SAT 84–98; BMI 45.8
--- NOTE | 2020-09-11 | HYST_PTH ---
PATIENT: CLAIRE HUANG LOC: [facility] [place] U#:[id number] AGE/SX: 60/F ROOM: RE09/11/[address]: Dr. Barbara Shell MD : 1960 BED: DIS: 09/12/2020 SPEC #: [id number] RECD: 09/11/20 12:31 STATUS: ANANDA RUDOLPH #: [id number] SE: 09/11/20 00:[address]: Barbara Shell DEPT: SURGICAL PATHOLOGY RECD BY: Ramon Telles ENTERED: 09/11/20 13:10 SP TYPE: HYSTERECT OTHR DR: Dr. Umair Rosario MD Tissues: Uterus, NOS Procedures: Surgery Specimen Level V HEADER OPERATION: Hysterectomy, LAVH PRE-OP DIAGNOSIS: Endometrial hyperplasia; postmenopausal bleeding TISSUE SUBMITTED: Uterus and cervix MICROSCOPIC DIAGNOSIS Uterus and cervix, vaginal hysterectomy: Cervix - mild chronic cystic cervicitis. Endometrium - focal simple cystic endometrial hyperplasia without atypia. Myometrium - diffuse adenomyosis. SJ:rg 09/12/2020 COMMENT Please make reference to previous specimen ([id number]) endometrial curettings and polyp with diagnosis of simple cystic endometrial hyperplasia without atypia and fragments of myometrium with changes suspicious for adenomyosis. MICROSCOPIC DESCRIPTION Slides are reviewed. GROSS DESCRIPTION Received in fixative is one container labeled with the patient's name and designated uterus and cervix. The specimen consists of a hysterectomy specimen consisting of uterus with cervix weighing 153 gm and?measuring 10 x 7 x 6 cm. The serosal surface is kidd, glistening. The ectocervical mucosa is unremarkable. The external os is slit-like in contour. The endocervical canal measures 3.5 cm in length and the endocervical mucosa is unremarkable. The triangular endometrial cavity measures 5.5 cm in length and 3 cm in width. The endometrium is congested without any mass lesion and measures 0.1 cm in thickness. The uterine wall measures up to 3 cm in thickness and reveals diffusely trabeculated cut surfaces suspicious for adenomyosis. No mass lesion is identified. Bunker Worker sections are submitted in ten cassettes as follows: 1 - anterior cervix, 2 - posterior cervix, 3-6 - anterior uterine wall, 710 - posterior uterine wall. The entire endometrium is submitted. / CLAUDIO:gertrude 09/11/20 TC:5 CPT: 38721
[2020-09-11 06:31] LABS: Bedside Glucose 126 mg/dL (70-110)
[2020-09-11] MEDS: Phenazopyridine 95 MG Tablet 190 MG PO (06:32)
[2020-09-11] MEDS: Celecoxib 200 MG Capsule 400 MG PO (06:32)
[2020-09-11] MEDS: Scopolamine 1mg/72hr Patch 1 PATCH TD (06:32)
[2020-09-11] MEDS: Lactated Ringers 1,000 ML 40 ML IV (06:33)
[2020-09-11] MEDS: Enoxaparin 40 MG/0.4 ML Syringe SC (06:33)
[2020-09-11] MEDS: dexAMETHasone 10 MG/ML Vial 8 MG IV (06:35)
[2020-09-11] MEDS: Acetaminophen 500 MG Tablet 1000 MG PO ×3 (07:12→18:41)
[2020-09-11] MEDS: Gabapentin 400 MG Capsule PO (07:25)
[2020-09-11] MEDS: Cefazolin 2 GM in 0.9% Normal Saline 100 ML IV (07:28)
--- NOTE | 2020-09-11 07:46 | PCM.OPRPT ---
Problem List (1) Abnormal electrocardiogram Status: Acute Comment: echo done and cleared for surgery by cardiology:Echo completed 09/07/2020, patient cleared for surgery. LV Normal Size, Left ventricular systolic function is normal, EF 60 %, structurally normal valves. Patient notified of echo results. (2) Endometrial hyperplasia without atypia, simple Status: Acute Comment: s/p progesterone therapy with persistent bleeding. plan proceed with LAVH. US ordered. (3) Postmenopausal bleeding Status: Acute Comment: persistent plan proceeding with LAVH Report of Operation Date of Procedure: 09/11/20 Pre-Operative Diagnosis: endometrial hyperplasia recurrent postmenopausal bleeding Post-Operative Diagnosis: same Surgery/Procedure Performed:: lavh Description of Surgical Findings:: anterior vesicouterine scar tissue roving department supervisor: kehinde wolf roving department supervisor: Adele Merino Type of Anesthesia:: General Special Medications: gopal Specimen's removed: uterus Drains: elias Estimated Blood Loss (mL): 100 Fluids Replaced: crystalloid Description of Procedure: Patient received preoperative antibiotics and SCDs were on preoperatively. Patient was taken back to the operating room and placed in the dorsal lithotomy position. General anesthesia was induced and patient was prepped and draped in normal sterile fashion. Uterine manipulator was placed inside the uterus and Elias catheter placed in the bladder. The umbilicus was grasped with towel clamps and an intraumbilical incision was made after injecting with quarter percent Marcaine and a Veress needle entered into the abdomen confirmed to be intra-abdominal with a low opening pressure. Abdomen was insufflated with CO2 gas and the Veress needle removed and the 5 mm trocar was placed under direct visualization without complication. Right and left lower quadrants were transilluminated and injected with quarter percent Marcaine and 5 mm ports placed under direct visualization. Pelvis was well visualized see operative findings for additional information. The round and broad ligaments were opened up by transecting the round ligament bilaterally and skeletonizing the uterine vessels bilaterally and creating a bladder flap using the LigaSure device. The uterine arteries were transected bilaterally with good visualization of the bladder and the ureters were seen to be inferior lateral to the operative area. Attention was then paid to the vaginal portion of the procedure and the cervix was grasped with Conchis clamps and circumferentially injected with dilute vasopressin. A circumferential incision was made and the vaginal mucosa was mobilized off posteriorly and the cul-de-sac entered into sharply and a longneck speculum placed. The anterior cul-de-sac was then identified and entered into sharply. The uterosacral ligaments were clamped cut and suture ligated with 0 Monocryl bilaterally followed by the cardinal ligaments which were clamped cut and suture ligated bilaterally with 0 Monocryl. The uterus serially descended and was removed without difficulty without morcellation. Pelvic sidewall pedicles were checked and noted to have excellent hemostasis. The vaginal mucosa was reapproximated incorporating the posterior peritoneum. This was reapproximated using 0 Vicryl bbsmyy-mz-cahij sutures. Excellent hemostasis was noted. Attention was then paid to the abdominal portion of the procedure again. The pelvis and cul-de-sac was well visualized and no significant active bleeding noted but some raw areas were seen on the peritoneum and therefore Gopal was applied. Pressure was taken down and the areas visualized and noted of excellent hemostasis. All ports were removed under direct visualization without complication and the abdomen was desufflated of air. The instruments removed from the abdomen and the vagina vaginal sweep was negative. Port sites on the abdomen were closed with 4-0 Monocryl interrupted sutures and Steri's and windows were applied. She was awoken and taken recovery in stable condition. Grafts/Implants Used: none - Complications none - Admit VTE Documentation VTE Present on Admission: No VTE Mechan Device Prophylaxis: SCD's Multi Select Codes - Urinary/Genital Urinary/Genital CPT Codes: 75057 LAVH <250gr uterus
[2020-09-11] MEDS: Lactated Ringers 1,000 ML 70 ML IV ×2 (09:00→15:59)
[2020-09-11] MEDS: Vasopressin 20 UNITS/ML Vial (09:23)
[2020-09-11] MEDS: Bupivacaine 0.25% 30 ML Vial (09:23)
--- NOTE | 2020-09-11 09:29 | PCM.DC.VHY ---
Discharge Diet: No Restrictions Discharge Activity: Return to Normal Activity, May Not Drive, May Shower May resume sexual activity in: 6-8 weeks Call your doctor if your incision/area has: Continuous Slow Oozing, Sudden Increased Bleeding, Increased Pain/ Swelling, Increased Redness, Foul Smelling Discharge Call your doctor if you observe: Fever of 101 or Higher, Inability to urinate, Inability to have a bowel movement, Using more than one pad per hour Allergies/Adverse Reactions: Allergies aspartame Allergy (Mild, Verified 09/05/20 13:19) unknown codeine Allergy (Mild, Verified 09/05/20 13:19) vomit diphenhydramine Allergy (Mild, Verified 09/05/20 13:19) aggressive honey Allergy (Mild, Verified 09/05/20 13:19) Other mushroom Allergy (Mild, Verified 09/05/20 13:19) unknown bee stings Allergy (Uncoded 09/05/20 13:19) Anaphylaxis Medications to take at Discharge acetaminophen 325 mg tablet 325 mg PO Q6H PRN 05/03/18 aspirin 81 mg tablet,delayed release 81 mg PO DAILY 05/03/18 baclofen 20 mg tablet 20 mg PO TID 05/03/18 cholecalciferol (vitamin D3) 25 mcg (1,000 unit) capsule 1,000 unit PO DAILY 05/03/18 diazepam 2 mg tablet 2 mg PO BID PRN 05/03/18 furosemide 20 mg tablet 20 mg PO DAILY 05/03/18 omeprazole 20 mg capsule,delayed release 20 mg PO DAILY 05/03/18 oxycodone 5 mg capsule 5 mg PO TID 05/03/18 sennosides 8.6 mg tablet 8.6 mg PO BID 05/03/18 Lactobacillus rhamnosus GG 10 billion cell capsule 1 cap PO BID 08/24/19 goovcvx-deaeeoydsmqic-vhusrvwd 250 mg-250 mg-65 mg tablet 1 tab PO ONCE PRN 08/24/19 bisacodyl 10 mg rectal suppository 10 mg RC DAILY PRN 08/24/19 epinephrine 0.3 mg/0.3 mL injection, auto-injector 0.3 mg IM ONCE PRN 08/24/19 fluticasone propionate 50 mcg/actuation nasal spray,suspension 2 spray INTRANASAL BID 08/24/19 gabapentin 400 mg capsule 600 mg PO TID cap 08/24/19 menthol 4 % topical gel 1 applic TOPICAL DAILY PRN 08/24/19 potassium chloride 10 mEq tablet,extended release 10 meq PO BID 08/24/19 albuterol sulfate 90 mcg/actuation aerosol inhaler 2 puff INHALATION Q6H PRN 08/14/20 benzonatate 100 mg capsule 100 mg PO BID-TID PRN 08/14/20 calcium citrate malate-vitamin D3 250 mg-100 unit tablet 1 tab PO DAILY 08/14/20 kerkrfxcmoqlxpejnlgxip-lmxaxthe-eilezspf 80 0.5 %-1 %-0.5 % eye drops 1 drp OPHTHALMIC 8-12XD PRN 08/14/20 fexofenadine 60 mg tablet 60 mg PO BID PRN 08/14/20 fluoxetine 20 mg capsule 20 mg PO DAILY 08/14/20 magnesium oxide 400 mg PO DAILY 08/14/20 menthol-zinc oxide 0.15 %-1 % topical powder 1 ea TOPICAL TID 08/14/20 multivitamin 1 tab PO DAILY 08/14/20 Enoxaparin Sodium [Lovenox] 40 mg SQ DAILY 14 Days #14 ml 09/11/20 Naproxen [Naprosyn] 250 - 500 mg PO Q8H PRN PRN #30 tab 09/11/20 Oxycodone HCl/Acetaminophen [Percocet 5-325] 1 - 2 tablet PO Q6H PRN PRN 7 Days #15 tablet 09/11/20 The following prescriptions were given: Enoxaparin Sodium [Lovenox] 40 mg SQ DAILY 14 Days #14 ml Transmission Status: Pending to [facility] Naproxen [Naprosyn] 250 - 500 mg PO Q8H PRN PRN #30 tab PRN Reason: MILD PAIN Transmission Status: Pending to [facility] Oxycodone HCl/Acetaminophen [Percocet 5-325] 1 - 2 tablet PO Q6H PRN PRN 7 Days #15 tablet PRN Reason: Pain Transmission Status: Sent to [facility] Primary Care Physician: Umair Rosario MD [Primary Care Provider] - Test Results: Test results from this visit will be discussed in further detail at your follow-up appointment, if applicable. Please Follow Up With: Barbara Shell MD - [phone]
[2020-09-11] MEDS: Ondansetron 4 MG/2 ML Vial IV (09:30)
--- NOTE | 2020-09-11 12:23 | CASEMGMT ---
Addendum entered by Monique Mcdonald 09/11/20 14:24: KENIA faxed updated clinicals to [facility]. Original Note: Social Work Note Pt is scheduled surgery today, will be staying at [facility]. Pt is listed as being from [facility]. KENIA placed a call to [facility] at [facility]. Winsome states pt is jail resident and is able to return when medically cleared. KENIA placed transfer to extended care form on pt's chart for surgeon to sign. KENIA wrote on sticky note that pt will also need signed medication list and any scripts signed. 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
[2020-09-11] MEDS: FLUoxetine 20 MG Capsule PO (13:31)
[2020-09-11] MEDS: Ketorolac 30 MG/ML Syringe IV ×2 (13:31→18:40)
[2020-09-11] MEDS: oxyCODONE 5 MG Tablet PO ×2 (13:32→21:20)
[2020-09-11] MEDS: Gabapentin 600 MG Tablet PO ×2 (13:32→21:23)
[2020-09-11] MEDS: Baclofen 10 MG Tablet 20 MG PO ×2 (13:32→21:22)
[2020-09-11] MEDS: Potassium Chloride Oral Tablet 10 MEQ PO (16:00)
[2020-09-11] MEDS: Docusate Sodium 100 MG Capsule PO (21:21)
[2020-09-11] MEDS: Fluticasone 0.05% 1 SPRAY NASAL.SRY 2 SPRAY NASAL (21:21)
[2020-09-11] MEDS: Senna Tablet 1 TABLET PO (21:23)
[2020-09-12] MEDS: Ketorolac 30 MG/ML Syringe IV ×2 (00:46→06:36)
[2020-09-12] MEDS: Acetaminophen 500 MG Tablet 1000 MG PO ×2 (00:46→07:32)
[2020-09-12 03:56] VITALS: BP 102/61; PULSE 71; RESP 18; TEMP 36.6; O2SAT 98
[2020-09-12] MEDS: diazePAM 2 MG Tablet PO (03:59)
[2020-09-12] MEDS: oxyCODONE 5 MG Tablet PO (05:51)
[2020-09-12] MEDS: Baclofen 10 MG Tablet 20 MG PO (05:51)
[2020-09-12] MEDS: Gabapentin 600 MG Tablet PO (05:51)
[2020-09-12 06:51] LABS: Hematocrit 39.8 % (37-47); Hemoglobin 12.6 g/dL (12.0-15.0); Mean Corp Hgb Conc 31.7 g/dL (32-36); Mean Corpuscular Volume 94.8 fL (81-99); Platelet Count 255 K/mm3 (150-450); RBC Distribution Width CV 12.9 % (11.6-14.6); RBC Distribution Width SD 44.7 fl (35.1-43.9); White Blood Count 13.2 K/mm3 (4.4-11.0)
[2020-09-12 07:13] LABS: Anion Gap 5 (5-15); BUN 11 mg/dL (7-18); BUN/Creat Ratio 14.1 RATIO (10-20); Calcium,Total 8.2 mg/dL (8.5-10.1); Chloride 104 mmol/L (98-107); Creatinine, Serum 0.78 mg/dL (0.55-1.02); EST Glomerular Filtration Rate 81 mL/min (>60); Est Glom Filt Rate - Afr Amer 98 mL/min (>60); Estimated Creatinine Clearance 76.45 ml/min; Glucose 137 mg/dL (74-106); Potassium 4.3 mmol/L (3.5-5.1); Sodium Level 140 mmol/L (136-145)
[2020-09-12] MEDS: Potassium Chloride Oral Tablet 10 MEQ PO (07:34)
[2020-09-12] MEDS: Calcium Carb/Vitamin D 1 TABLET Tablet PO (07:34)
--- NOTE | 2020-09-12 07:45 | PCM.PN.OB ---
Patient Problems: Active and Suspected Problems (Last Updated 09/10/20 @ 09:56 by Lynette Miguel) Abnormal electrocardiogram (Acute) echo done and cleared for surgery by cardiology:Echo completed 09/07/2020, patient cleared for surgery. LV Normal Size, Left ventricular systolic function is normal, EF 60 %, structurally normal valves. Patient notified of echo results. Endometrial hyperplasia without atypia, simple (Acute) s/p progesterone therapy with persistent bleeding. plan proceed with LAVH. US ordered. Postmenopausal bleeding (Acute) persistent plan proceeding with LAVH Subjective: Doing well. Taking po. Denies SOB, chest pain. Elias draining clear light yellow urine - Physical Exam Vitals/I&O's: Vital Signs Temp Pulse Resp BP Pulse Ox 97.9 F 71 18 102/61 98 09/12/20 03:56 09/12/20 03:56 09/12/20 03:56 09/12/20 03:56 09/12/20 03:56 Oxygen Flow Rate (L/min) 2 Oxygen Delivery Method Nasal Cannula Weight: 293 lb Body Mass Index (BMI) 45.8 Intake and Output for Last 24 Hours 09/10/20 09/11/20 09/12/20 23:59 23:59 23:59 Intake Total 2210 / 2460 1700 / 1700 Output Total 610 / 885 825 / 825 Balance 1600 / 1575 875 / 875 General: Alert, Oriented x3, Cooperative Abdomen: Soft, Non-Distended, - - Dressings dry and intact Laboratory Results 09/12/20 05:50: WBC 13.2 H, RBC 4.20, Hgb 12.6, Hct 39.8, MCV 94.8, MCH 30.0, MCHC 31.7 L, RDW Std Deviation 44.7 H, RDW Coeff of Chrsitine 12.9, Plt Count 255, MPV 11.0 09/12/20 05:50: Sodium 140, Potassium 4.3, Chloride 104, Carbon Dioxide 31.0, Anion Gap 5, BUN 11, Creatinine 0.78, Estim Creat Clear Calc 76.45, Est GFR (MDRD) Af Amer 98, Est GFR (MDRD) Non-Af 81, BUN/Creatinine Ratio 14.1, Glucose 137 H, Calcium 8.2 L Current Medications Acetaminophen (Acetaminophen 500 Mg Tablet) 1,000 mg PO Q6H [facility] Last Admin: 09/12/20 07:32 Dose: 1,000 mg Documented by: Albuterol Sulfate (Albuterol 2.5 Mg/3 Ml Vial.Neb.) 2.5 mg INHALATION Q6H PRN PRN PRN Reason: SOB &/OR WHEEZING Artificial Tears (Dextran 70/He-Cell 15ml Bottle) 1 drop OPHTHALMIC Q2H PRN PRN PRN Reason: Dry Eye Baclofen (Baclofen 10 Mg Tablet) 20 mg PO TID [facility] Last Admin: 09/12/20 05:51 Dose: 20 mg Documented by: Benzonatate (Benzonatate 100 Mg Capsule) 100 mg PO TID PRN PRN PRN Reason: COUGH Bisacodyl (Bisacodyl 10 Mg Suppository) 10 mg RC DAILY PRN PRN Reason: Constipation Calcium/Vitamin D (Calcium Carb/Vitamin D 1 Tablet Tablet) 1 tablet PO DAILY@0800 [facility] Last Admin: 09/12/20 07:34 Dose: 1 tablet Documented by: Cholecalciferol (Cholecalciferol (Vit D3) 1,000 Unit (25mcg)) 1,000 unit PO DAILY [facility] Diazepam (Diazepam 2 Mg Tablet) 2 mg PO BID PRN PRN PRN Reason: ANXIETY Last Admin: 09/12/20 03:59 Dose: 2 mg Documented by: Docusate Sodium (Docusate Sodium 100 Mg Capsule) 100 mg PO BID [facility] Last Admin: 09/11/20 21:21 Dose: 100 mg Documented by: Enoxaparin Sodium (Enoxaparin 40 Mg/0.4 Ml Syringe) 40 mg SC DAILY [facility] Fluoxetine HCl (Fluoxetine 20 Mg Capsule) 20 mg PO DAILY [facility] Last Admin: 09/11/20 13:31 Dose: 20 mg Documented by: Fluticasone Propionate (Fluticasone 0.05% 1 [place] Nasal.Sry) 2 spray NASAL BID [facility] Last Admin: 09/11/20 21:21 Dose: 2 spray Documented by: Gabapentin (Gabapentin 600 Mg Tablet) 600 mg PO TID [facility] Last Admin: 09/12/20 05:51 Dose: 600 mg Documented by: Lactated Ringer's () 1,000 mls @ 70 mls/hr IV .[id number] [facility] Stop: 09/12/20 11:55 Last Infusion: 09/12/20 06:17 Dose: Infused Documented by: Ketorolac Tromethamine (Ketorolac 30 Mg/Ml Syringe) 30 mg IV Q6H [facility] Stop: 09/12/20 19:01 Last Admin: 09/12/20 06:36 Dose: 30 mg Documented by: Lactobacillus Acidophilus ([facility]us) [facility] Last Admin: 09/12/20 07:33 Dose: 1 tablet Documented by: Loratadine (Loratadine 10 Mg Tablet) 10 mg PO DAILY PRN PRN Reason: Allergies Magnesium Chloride (Magnesium Chloride 64 Mg Delay Rel.Tablet) 128 mg PO DAILY PRN PRN PRN Reason: Constipation Menthol (Menthol 226.8 Gm Jar) 1 applic TP DAILY PRN PRN PRN Reason: Pain 1-10 Multivitamins (Multivitamins,Therapeutic Tablet) 1 tablet PO DAILY@1200 [facility] Nutritional Formula (Lactose Free) (Ensure Enlive 120 Ml Liquid) 120 ml PO TIDCM [facility] Last Admin: 09/12/20 07:31 Dose: 120 ml Documented by: Ondansetron HCl (Ondansetron Odt 4 Mg Tablet) 4 mg PO Q6H PRN PRN PRN Reason: NAUSEA Oxycodone HCl (Oxycodone 5 Mg Tablet) 5 mg PO TID [facility] Last Admin: 09/12/20 05:51 Dose: 5 mg Documented by: Oxycodone HCl (Oxycodone 5 Mg Tablet) 5 - 10 mg PO Q4H PRN PRN PRN Reason: Pain Score 4-10 Pantoprazole Sodium (Pantoprazole Sodium 20 Mg Tablet) 20 mg PO DAILY [facility] Potassium Chloride (Potassium Chloride Oral Tablet 10 Meq) [facility] Last Admin: 09/12/20 07:34 Dose: 10 meq Documented by: Senna (Senna Tablet) 1 tablet PO BID [facility] Last Admin: 09/11/20 21:23 Dose: 1 tablet Documented by: Sodium Chloride (0.9% Saline Lock 10 Ml Syringe) 10 - 40 ml IV UD PRN PRN Reason: SALINE FLUSH Medical Necessity - Tobacco Use Smoking Status: Never smoker Tobacco Use: Non-smoker Assessment/Plan All Active Problems (Last Updated 09/10/20 @ 09:56 by Lynette Miguel) History of LAVH (Resolved ~09/11/20) Abnormal electrocardiogram (Acute) Endometrial hyperplasia without atypia, simple (Acute) Postmenopausal bleeding (Acute) patient is s/p lav POD 1 1. routine ERAS protocol postop care- encourage oral intake and oral control of pain. lovenox and scds for dvt prophylaxis, patient stable for discharge to home/assisted living facility.
--- NOTE | 2020-09-12 07:51 | PCM.DC.VHY ---
Discharge Diet: No Restrictions Discharge Activity: Return to Normal Activity, May Not Drive, May Shower May resume sexual activity in: 6-8 weeks Call your doctor if your incision/area has: Continuous Slow Oozing, Sudden Increased Bleeding, Increased Pain/ Swelling, Increased Redness, Foul Smelling Discharge Call your doctor if you observe: Fever of 101 or Higher, Inability to urinate, Inability to have a bowel movement, Using more than one pad per hour Allergies/Adverse Reactions: Allergies aspartame Allergy (Mild, Verified 09/05/20 13:19) unknown codeine Allergy (Mild, Verified 09/05/20 13:19) vomit diphenhydramine Allergy (Mild, Verified 09/05/20 13:19) aggressive honey Allergy (Mild, Verified 09/05/20 13:19) Other mushroom Allergy (Mild, Verified 09/05/20 13:19) unknown bee stings Allergy (Uncoded 09/05/20 13:19) Anaphylaxis Medications to take at Discharge acetaminophen 325 mg tablet 325 mg PO Q6H PRN 05/03/18 aspirin 81 mg tablet,delayed release 81 mg PO DAILY 05/03/18 baclofen 20 mg tablet 20 mg PO TID 05/03/18 cholecalciferol (vitamin D3) 25 mcg (1,000 unit) capsule 1,000 unit PO DAILY 05/03/18 diazepam 2 mg tablet 2 mg PO BID PRN 05/03/18 furosemide 20 mg tablet 20 mg PO DAILY 05/03/18 omeprazole 20 mg capsule,delayed release 20 mg PO DAILY 05/03/18 oxycodone 5 mg capsule 5 mg PO TID 05/03/18 sennosides 8.6 mg tablet 8.6 mg PO BID 05/03/18 Lactobacillus rhamnosus GG 10 billion cell capsule 1 cap PO BID 08/24/19 lrzbjqp-usjvqimrxziqp-badwjcue 250 mg-250 mg-65 mg tablet 1 tab PO ONCE PRN 08/24/19 bisacodyl 10 mg rectal suppository 10 mg RC DAILY PRN 08/24/19 epinephrine 0.3 mg/0.3 mL injection, auto-injector 0.3 mg IM ONCE PRN 08/24/19 fluticasone propionate 50 mcg/actuation nasal spray,suspension 2 spray INTRANASAL BID 08/24/19 gabapentin 400 mg capsule 600 mg PO TID cap 08/24/19 menthol 4 % topical gel 1 applic TOPICAL DAILY PRN 08/24/19 potassium chloride 10 mEq tablet,extended release 10 meq PO BID 08/24/19 albuterol sulfate 90 mcg/actuation aerosol inhaler 2 puff INHALATION Q6H PRN 08/14/20 benzonatate 100 mg capsule 100 mg PO BID-TID PRN 08/14/20 calcium citrate malate-vitamin D3 250 mg-100 unit tablet 1 tab PO DAILY 08/14/20 xzexktlhblxaxvjjabqsro-bmtdweif-yrcgryfp 80 0.5 %-1 %-0.5 % eye drops 1 drp OPHTHALMIC 8-12XD PRN 08/14/20 fexofenadine 60 mg tablet 60 mg PO BID PRN 08/14/20 fluoxetine 20 mg capsule 20 mg PO DAILY 08/14/20 magnesium oxide 400 mg PO DAILY 08/14/20 menthol-zinc oxide 0.15 %-1 % topical powder 1 ea TOPICAL TID 08/14/20 multivitamin 1 tab PO DAILY 08/14/20 Enoxaparin Sodium [Lovenox] 40 mg SQ DAILY 14 Days #14 ml 09/11/20 Naproxen [Naprosyn] 250 - 500 mg PO Q8H PRN PRN #30 tab 09/11/20 Oxycodone HCl/Acetaminophen [Percocet 5-325] 1 - 2 tab PO Q6H PRN PRN 7 Days #15 tab 09/11/20 The following prescriptions were given: Enoxaparin Sodium [Lovenox] 40 mg SQ DAILY 14 Days #14 ml Transmission Status: Received by [facility] Naproxen [Naprosyn] 250 - 500 mg PO Q8H PRN PRN #30 tab PRN Reason: MILD PAIN Transmission Status: Received by [facility] Oxycodone HCl/Acetaminophen [Percocet 5-325] 1 - 2 tab PO Q6H PRN PRN 7 Days #15 tab PRN Reason: Pain Transmission Status: Received by [facility] Primary Care Physician: Umair Rosario MD [Primary Care Provider] - Test Results: Test results from this visit will be discussed in further detail at your follow-up appointment, if applicable. Please Follow Up With: Barbara Shell MD - [phone]
[2020-09-12 08:00] VITALS: BP 102/45; PULSE 70; RESP 18; TEMP 36.9; O2SAT 94
[2020-09-12 08:08] VITALS: O2SAT 98
--- NOTE | 2020-09-12 08:42 | NURSING ---
Monique TURK aware of transportation needs- pt reports [facility] has a van who will come pick her up. pt states she has her own wheelchair and walker in the bathroom for transport. pt prefers to be picked up as soon as she can this am.
--- NOTE | 2020-09-12 08:49 | CASEMGMT ---
Addendum entered by Monique Mcdonald 09/12/20 10:10: KENIA received message from Winsome at [facility], pt does need script for oxy. KENIA placed a call to Dr. Shell's office and spoke with RN stating pt will need script for oxy. SW received oxy script. KENIA faxed competed discharge paperwork to [facility] including transfer to extended care facility, signed medication list, and any scripts. Original in SNF folder and copy on pt's chart. KENIA received call from Winsome at [facility] stating there transportation is able to transport pt back, is on the way to [facility] now to transport pt. KENIA updated RN. KENIA in to speak with pt. KENIA introduced self and role at [facility]. Pt is alert and orientated, confirms plan is to return to [facility]. KENIA updated pt that [facility] will be transporting pt and they are on their way to transport. Pt states understanding. KENIA spoke with RN, pt will not need oxygen for transportation. Plan: Return to [facility] shelter with [facility] transporting pt. Monique Mcdonald DIFFUSION FURNACE OPERATOR, [employer]ING WORKER Original Note: Social Work Note SW aware pt is to discharge back to [facility] today. KENIA updated RN that this worker still needs discharge paperwork from physician before pt can discharge. KENIA placed a call to Winsome at [facility] and let her know pt will be discharged today, just waiting for discharge paperwork to be completed. [facility] states pt doesn't need another COVID test to return. SW to fax discharge paperwork once complete and will arrange transportation. Monique Mcdonald DIFFUSION FURNACE OPERATOR, PR[employer] B[employer]ING WORKER
--- NOTE | 2020-09-12 09:16 | PHA.DC.MR ---
Pharmacy Service has performed discharge medication reconciliation for this patient. The patient's discharge medication list was reviewed for discrepancies and discrepancies were resolved. Home Medications acetaminophen 325 mg tablet 325 mg PO Q6H PRN 05/03/18 aspirin 81 mg tablet,delayed release 81 mg PO DAILY 05/03/18 baclofen 20 mg tablet 20 mg PO TID 05/03/18 cholecalciferol (vitamin D3) 25 mcg (1,000 unit) capsule 1,000 unit PO DAILY 05/03/18 diazepam 2 mg tablet 2 mg PO BID PRN 05/03/18 furosemide 20 mg tablet 20 mg PO DAILY 05/03/18 omeprazole 20 mg capsule,delayed release 20 mg PO DAILY 05/03/18 oxycodone 5 mg capsule 5 mg PO TID 05/03/18 sennosides 8.6 mg tablet 8.6 mg PO BID 05/03/18 Lactobacillus rhamnosus GG 10 billion cell capsule 1 cap PO BID 08/24/19 ljcddmm-ajwztvfrjxkgt-hzyzqaao 250 mg-250 mg-65 mg tablet 1 tab PO ONCE PRN 08/24/19 bisacodyl 10 mg rectal suppository 10 mg RC DAILY PRN 08/24/19 epinephrine 0.3 mg/0.3 mL injection, auto-injector 0.3 mg IM ONCE PRN 08/24/19 fluticasone propionate 50 mcg/actuation nasal spray,suspension 2 spray INTRANASAL BID 08/24/19 gabapentin 400 mg capsule 600 mg PO TID cap 08/24/19 menthol 4 % topical gel 1 applic TOPICAL DAILY PRN 08/24/19 potassium chloride 10 mEq tablet,extended release 10 meq PO BID 08/24/19 albuterol sulfate 90 mcg/actuation aerosol inhaler 2 puff INHALATION Q6H PRN 08/14/20 benzonatate 100 mg capsule 100 mg PO BID-TID PRN 08/14/20 calcium citrate malate-vitamin D3 250 mg-100 unit tablet 1 tab PO DAILY 08/14/20 lijpkbelygkiriocwlsdti-tksbxles-knygzing 80 0.5 %-1 %-0.5 % eye drops 1 drp OPHTHALMIC 8-12XD PRN 08/14/20 fexofenadine 60 mg tablet 60 mg PO BID PRN 08/14/20 fluoxetine 20 mg capsule 20 mg PO DAILY 08/14/20 magnesium oxide 400 mg PO DAILY 08/14/20 menthol-zinc oxide 0.15 %-1 % topical powder 1 ea TOPICAL TID 08/14/20 multivitamin 1 tab PO DAILY 08/14/20 Enoxaparin Sodium [Lovenox] 40 mg SQ DAILY 14 Days #14 ml 09/11/20 Naproxen [Naprosyn] 250 - 500 mg PO Q8H PRN PRN #30 tab 09/11/20 Oxycodone HCl/Acetaminophen [Percocet 5-325] 1 - 2 tab PO Q6H PRN PRN 7 Days #15 tab 09/11/20
[2020-09-12] MEDS: Fluticasone 0.05% 1 SPRAY NASAL.SRY 2 SPRAY NASAL (10:49)
[2020-09-12] MEDS: Docusate Sodium 100 MG Capsule PO (10:50)
[2020-09-12] MEDS: FLUoxetine 20 MG Capsule PO (10:50)
[2020-09-12] MEDS: Pantoprazole Sodium 20 MG Tablet PO (10:50)
[2020-09-12] MEDS: Senna Tablet 1 TABLET PO (10:53)
[2020-09-12] MEDS: Enoxaparin 40 MG/0.4 ML Syringe SC (10:55)
== END 2020-09-12 13:50 | disposition skilled nursing facility (03) ==
LOC: SDC 05:18 → AC 05:19 → MS3 08:06
PROVIDERS: Anesthesiology; PCP Family Medicine; Referring Provider Obstetrics & Gynecology; Visit Provider Obstetrics & Gynecology
PROC: 0UT9FZZ Resection of Uterus, Via Natural or Artificial Opening With Percutaneous Endoscopic Assistance (ICD-10-PCS; CPT 58550; principal; 2020-09-11 07:05)
DX: N85.01 Benign endometrial hyperplasia (principal); N95.0 Postmenopausal bleeding; R94.31 Abnormal electrocardiogram [ECG] [EKG]; F32.9 Major depressive disorder, single episode, unspecified; K21.9 Gastro-esophageal reflux disease without esophagitis; G43.909 Migraine, unspecified, not intractable, without status migrainosus; E11.9 Type 2 diabetes mellitus without complications; F41.9 Anxiety disorder, unspecified; G82.50 Quadriplegia, unspecified; G25.81 Restless legs syndrome; Z79.899 Other long term (current) drug therapy; Z79.82 Long term (current) use of aspirin; Z79.51 Long term (current) use of inhaled steroids
CPT/HCPCS: 00940; 58550; 36415; 80048; 80053; 82962; 84443; 85027; 86850; 86900; 86901; 88307; 93005; 94762; 99251; J7120; G0463; J2405

== ENCOUNTER 2023-03-10 22:23 | Inpatient (IN) | payer MEDICARE, MEDICAID, SELFPAY ==
[2023-03-10 22:25] VITALS: BP 162/89; PULSE 114; RESP 29; TEMP 37.6; O2SAT 94; BMI 46.2
[2023-03-10 22:29] VITALS: BP 162/89; PULSE 113; RESP 22; TEMP 37.6; O2SAT 95
--- NOTE | 2023-03-10 22:36 | EKG12_ITS ---
Test Reason : DYSRHYTHMIA Blood Pressure : / mmHG Vent. Rate : 115 BPM Atrial Rate : 115 BPM P-R Int : 134 ms QRS Dur : 084 ms QT Int : 322 ms P-R-T Axes : 026 -52 047 degrees QTc Int : 445 ms Sinus tachycardia Left anterior fascicular block Abnormal ECG Confirmed by LULI MONTGOMERY, XOCHILT ([id number]), rewrite editor MERRITT JOYNER ([id number]) on 04/16/2023 1:31:35 PM Referred By: RHONA Confirmed By:YAMILE ROCKWELL MD
[2023-03-10 22:47] VITALS: BP 177/88; PULSE 163; RESP 20; O2SAT 93; O2SAT 94
[2023-03-10 22:52] VITALS: PULSE 117
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
--- NOTE | 2023-03-10 23:08 | CT_ITS ---
EXAM: CT ANGIOGRAPHY CHEST WITHOUT AND WITH INTRAVENOUS CONTRAST CLINICAL INDICATION: Dyspnea TECHNIQUE: Helically acquired angiography images were obtained of the chest without and with intravenous contrast. This CT exam was performed using one or more of the following dose reduction techniques: automated exposure control, adjustment of the mA and/or kV according to patient size, and/or use of iterative reconstruction technique. MIP reconstructed images were created and reviewed. RADIATION DOSE: CTDIvol = 26.81 mGy, DLP = 2129.21 mGy-cmContrast: IV 100mL [id number] COMPARISON: No relevant prior studies available. FINDINGS: LIMITATIONS: Significantly delayed exam, missed bolus in the pulmonary arteries. The aorta and left heart chambers are well opacified with poor opacification of pulmonary arteries. PULMONARY ARTERIES: See above. AORTA: Minimal atherosclerotic change of the aortic arch, no aneurysm or dissection. GREAT VESSELS OF AORTIC ARCH: See above. LUNGS AND PLEURAL SPACES: Heterogeneous enlarged thyroid with multiple tiny punctate calcifications and multiple heterogeneous cysts hypodense nodules, the largest appears to be a thick walled partially included 1.8 cm x 1.5 cm cystic-necrotic lesion at the upper pole of the right lobe, and there is asymmetric enlargement of the left lobe and some limited streak artifact, the isthmus is thickened to roughly 1.5 cm, the left lobe is at least 5.9 cm craniocaudal. No significant infiltrates, effusions or infarcts. Minimal bands of dependent atelectasis. No pneumothorax. HEART: See above. MEDIASTINUM: Small hiatal hernia. Small mediastinal lymph nodes are not pathologic by size criteria. Esophagus is unremarkable. THYROID: Unremarkable. No thyroid lesions. BONES/JOINTS: Partially included are postoperative lower cervical spine changes. No suspicious lytic or blastic abnormality. CT/CTA Chest W/WO Contrast IMPRESSION: 1. Suboptimal exam for PE, missed bolus and delayed phase exam. Exam appears adequate to exclude a very large proximal PE but is otherwise very limited and nondiagnostic. 2. Small hiatal hernia. 3. Enlarged and heterogeneous thyroid. 1.8 cm thick-walled peripherally enhance dominant lesion in the right lobe, not fully included. Recommendation: ACR White Paper guidelines (Trivedi JK, et al. JACR 2015;12(2):143-50) suggest further evaluation with thyroid ultrasound. Electronically Signed: Sarai Eastman MD at 0:39 EDT ,
--- NOTE | 2023-03-10 23:09 | CT_ITS ---
We are attempting to reach an attending provider to discuss findings. An addendum with communication details will be sent when the communication is complete. EXAM: CT ABDOMEN AND PELVIS WITH INTRAVENOUS CONTRAST CLINICAL INDICATION: Abdominal pain TECHNIQUE: Helically acquired images were obtained of the abdomen and pelvis with intravenous contrast. This CT exam was performed using one or more of the following dose reduction techniques: automated exposure control, adjustment of the mA and/or kV according to patient size, and/or use of iterative reconstruction technique. CONTRAST: IV 100mL Isovue-370 RADIATION DOSE: CTDIvol = 26.81 mGy, DLP = 2129.21 mGy-cm. COMPARISON: No relevant prior studies available. FINDINGS: LOWER THORAX: Slight hiatal hernia. Lung bases are clear. No cardiomegaly. No significant pericardial effusion. ABDOMEN: LIVER: Mild low-attenuation fatty liver. Hepatomegaly, the right lobe of the liver is 21 cm craniocaudal. GALLBLADDER AND BILE DUCTS: There is prominent distention of the gallbladder with mildly thick-walled estimated to be about 5 mm, peripherally calcified 2.5 cm stone in the proximal body, slight surrounding haziness, trace intraluminal air in the anterior gallbladder, thought to be in the lumen. Slight apparent pericholecystic fluid visible on sagittal images. The gallbladder fundus is roughly 5 cm AP. No intrahepatic duct dilatation. The common duct is 7 mm, mildly tapering distally. No evidence of filling defect. No pneumobilia. PANCREAS: Slightly ill-defined margins of the pancreas, normal size, no nemesio peripancreatic edema. No focal cystic or solid mass. SPLEEN: Unremarkable. Normal size without focal cystic or solid mass. ADRENALS: Unremarkable. No nodules. KIDNEYS AND URETERS: Unremarkable. Normal renal size and position. No hydronephrosis. STOMACH AND BOWEL: Mild fluid and gas in the stomach, mildly prominent small bowel contents. Mild to moderate stool in the proximal half of the colon. Moderate gas and stool in the rectum. Mild diverticulosis of descending and sigmoid colon, no evidence of acute diverticulitis. No stomach or bowel distention. PELVIS: APPENDIX: Slightly prominent appendix, it does not contain gas and measures roughly 8 mm at its mid to distal portion on axial image #99 and 7.7 mm at the tip sagittal image #85. No surrounding inflammation. BLADDER: Unremarkable. REPRODUCTIVE: Hysterectomy. ABDOMEN and PELVIS: INTRAPERITONEAL SPACE: Unremarkable. No ascites or other fluid collection. No free air. BONES/JOINTS: Minimal spine degenerative changes. No suspicious lytic or blastic abnormality. SOFT TISSUES: See above. VASCULATURE: Unremarkable. Abdominal aorta is non-dilated. LYMPH NODES: Unremarkable. No enlarged lymph nodes. CT/Abdomen/Pelvis W IV Cont ONLY IMPRESSION: 1. Findings highly consistent with acute cholecystitis with large stone deep in the neck, prominent gallbladder distention, wall thickening, and mild pericholecystic fluid. Slight intraluminal or submucosal air in the anterior nondependent gallbladder fundus, likely intraluminal. Suspected early acute emphysematous cholecystitis. There is no pneumobilia to explain intraluminal air in the gallbladder. 2. 7 mm common duct, no convincing choledocholithiasis. 3. Slightly ill-defined margins of the pancreas but no nemesio peripancreatic edema. 4. Hysterectomy. 5. Diverticulosis, no evidence of acute diverticulitis. 6. Slightly prominent fluid-filled appendix but not convincing for acute appendicitis. Electronically Signed: Sarai Eastman MD at 0:30 EDT ,
[2023-03-10 23:13] VITALS: O2SAT 93
[2023-03-10 23:16] LABS: Absolute Lymphocyte Count 3.36 X10^3/uL (0.83-4.51); Absolute Neutrophil Count 17.2 X10^3/uL (2.0-7.7); Basophil% 0.4 % (0-1); Eosinophil# 0.16 X10^3/uL; Eosinophils% 0.7 % (0-5); Hematocrit 52.7 % (37-47); Hemoglobin 16.9 g/dL (12.0-15.0); Lymphocyte # 3.36 X10^3/ul (0.83-4.51); Mean Corp Hgb Conc 32.1 g/dL (32-36); Mean Corpuscular Hgb 30.5 pg (27.0-32.0); Mean Platelet Vol. 10.6 fl (6.2-12.0); Monocyte# 1.53 X10^3/uL; Monocyte% 6.8 % (0-10); NRBC Flagged by Analyzer 0 % (0-5); Neutrophil # 17.23 X10^3/uL (2.7-7.7); Neutrophil % 76.7 % (47-70); POSITIVE DIFFERENTIAL YES; Platelet Count 322 K/mm3 (150-450); RBC Distribution Width SD 45.7 fl (35.1-43.9); Red Blood Count 5.55 M/mm3 (4.2-5.4); White Blood Count 22.5 K/mm3 (4.4-11.0)
[2023-03-10] MEDS: Aspirin 81 MG TAB.CHEW 324 MG PO (23:23)
[2023-03-10 23:24] LABS: Differential Indicated SCAN CRITERIA MET
[2023-03-10 23:42] LABS: ALB/GLOB Ratio 0.8 RATIO (0.9-2.4); AST(SGOT) 47 U/L (15-37); Alanine Aminotransfer ALT/SGPT 55 U/L (13-56); Albumin, Serum 3.7 g/dL (3.2-5.0); Alkaline Phosphatase 124 U/L (45-117); Anion Gap 5 (5-15); BUN 15 mg/dL (7-18); BUN/Creat Ratio 16.1 RATIO (10-20); Calcium,Total 9.2 mg/dL (8.5-10.1); Chloride 100 mmol/L (98-107); Creatinine, Serum 0.93 mg/dL (0.55-1.02); EST Glomerular Filtration Rate 65 mL/min (>60); Est Glom Filt Rate - Afr Amer 79 mL/min (>60); Estimated Creatinine Clearance 61.77 ml/min; Globulin 4.6 g/dL (2.2-4.2); Glucose 125 mg/dL (74-106); Lipase 21 U/L (13-75); Potassium 4.9 mmol/L (3.5-5.1); Protein, Total 8.3 g/dL (6.4-8.2); Sodium Level 136 mmol/L (136-145); Troponin-I HS (w/2H Reflex) 4 pg/mL (3.0-54.0)
[2023-03-10 23:46] VITALS: BP 121/73; PULSE 135; RESP 19; O2SAT 92
[2023-03-11] VITALS (42 sets, daily range): BP systolic 84–123; BP diastolic 34–84; PULSE 70–135; RESP 14–28; TEMP 37.4–38.7; O2SAT 88–99; BMI 46.2; BMI 47.7
[2023-03-11 00:14] LABS: Mucous, Urine 0 SEEN /hpf (<or=2+); Red Blood Cells-Urine 0 SEEN /hpf (0-5); White Blood Cells 0 SEEN /hpf (0-5)
[2023-03-11 00:16] LABS: Color, Urine Yellow (Yellow); Glucose, Dipstick Normal (Normal); Ketone-Dipstick Negative (Negative); Leukocyte Esterase-Dipstick Negative /ul (Negative); Nitrite-Dipstick Positive (Negative); Occult Blood-Urine 10 /ul (Negative); Protein-Dipstick Negative (Negative); Urine Bilirubin Dipstick Negative (Negative); Urine Clarity Clear (Clear); Urine Urobilinogen Normal (Normal)
[2023-03-11 00:18] LABS: Differential Comment SCANNED
[2023-03-11 00:32] LABS: Bacteria 2+ /hpf (None Seen); Squamous Epithelial Cells - UA 0-5 SEEN /hpf (5-10)
[2023-03-11 01:14] LABS: Reflex Troponin-HS? (from REC) Y
--- NOTE | 2023-03-11 01:34 | ED.RN ---
Avenue updated on pt admission.
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
[2023-03-11] MEDS: Ondansetron 4 MG/2 ML Vial IV (01:45)
[2023-03-11] MEDS: 0.9% Normal Saline 1,000 ML 1000 ML IV ×2 (01:45→02:00)
[2023-03-11 01:46] LABS: Troponin-I HS 15 pg/mL (3.0-54.0)
[2023-03-11] MEDS: Acetaminophen 650 MG Suppository RC (01:46)
[2023-03-11 02:03] LABS: International Normalized Ratio 1.1; Prothrombin Time (Protime)PT. 13.8 SECONDS (11.7-14.9)
[2023-03-11 02:19] LABS: Lactic Acid 2.2 mmol/L (0.4-1.9)
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
[2023-03-11] MEDS: 0.9% Normal Saline 1,000 ML 999 ML IV (04:05)
--- NOTE | 2023-03-11 05:25 | ED.RN ---
PREPARING TO INSERT A CENTRAL LINE AT THIS TIME
--- NOTE | 2023-03-11 05:37 | RAD_ITS ---
EXAM: XR CHEST, 1 VIEW CLINICAL INDICATION: central line TECHNIQUE: Frontal view of the chest. COMPARISON: Chest CT March 10, 2023 and angle bender exam. Thyroid ultrasound was recommended. FINDINGS: LUNGS AND PLEURAL SPACES: No evidence of pneumothorax. Mild pulmonary hypoinflation. No effusion. HEART: Unremarkable. Cardiac silhouette not enlarged. MEDIASTINUM: Central airways and mediastinal contour are unremarkable. BONES/JOINTS: Unremarkable. SOFT TISSUES: Unremarkable. TUBES, LINES AND DEVICES: Right jugular line with its tip over the mid-distal SVC, estimated to be roughly 2.6 cm proximal to the SVC-right atrial junction. RAD/CXR for Line Placement IMPRESSION: Well-positioned right jugular line. No acute intrathoracic abnormality. Electronically Signed: Sarai Eastman MD at 6:40 EDT ,
--- NOTE | 2023-03-11 05:50 | GALL_PTH ---
PATIENT: CLAIRE HUANG LOC: [facility] U#:[id number] AGE/SX: 63/F ROOM: [facility] RE03/11/[address]: Dr. Jonathan Goins DO : 1960 BED: 1 DIS: 03/14/2023 SPEC #: [id number] RECD: 03/11/23 11:45 STATUS: ANANDA RUDOLPH #: [id number] SE: 03/11/23 05:[address]: Isreal Olivo DEPT: SURGICAL PATHOLOGY RECD BY: Regina Jackson ENTERED: 03/11/23 12:55 SP TYPE: GALLBLADDE OTHR DR: MD Dr. Artemio Laughlin DO Dr. Joseph Agyepong, MD Dr. Mark Tereletsky, DO Dr. Paul Nielsen, MD Tissues: Gallbladder, NOS Procedures: Surgery Specimen Level III Comments: @ Ordering doctor for SUIII edited from to @ lamonte VILLEDA at 03/11/23 1522 @ Submitting doctor edited from to @ by CHRISTIANA at 03/11/23 1522 HEADER OPERATION: Laparoscopic cholecystectomy PRE-OP DIAGNOSIS: Acute cholecystitis TISSUE SUBMITTED: Gallbladder MICROSCOPIC DIAGNOSIS Gallbladder, cholecystectomy: Acute and chronic ulcerated, hemorrhagic, and necrotizing cholecystitis and cholelithiasis. SJ:gertrude 03/12/2023 MICROSCOPIC DESCRIPTION Slides are reviewed. GROSS DESCRIPTION Received is one container labeled with the patient's name and designated gallbladder. The specimen consists of a gallbladder measuring 9.0 cm in length and up to 4.0 cm in diameter. The external surface is pink-kidd, smooth and glistening for the most part. Focally it is granular, hemorrhagic and contains cautery artifact. The gallbladder contains hemorrhagic bile and one large brlquraq-asczqwvm-foxly ovoid stone measuring 4.0 cm in greatest dimension. Multiple fragments of brownish-orange stones are also noted measuring in aggregate 3.5 x 4.0 x 1.0 cm. The stone fragments measure 0.1 to 0.5 cm in greatest dimension. The mucosa is congested and hemorrhagic. The gallbladder wall measures up to 0.4 cm in thickness. Also present close to the cystic duct is an ovoid nodule, a possible lymph node, measuring 2.0 cm in greatest dimension. Director Of Health Care Marketing sections from the gallbladder and the cystic duct are submitted in two cassette. Cassette 2 contains bisected possible lymph node. The lymph node is submitted in entirety. / CLAUDIO:gertrude 03/12/2023 TC:2 CPT: 99797
[2023-03-11 05:51] LABS: Reflex Lactate? Y
--- NOTE | 2023-03-11 06:19 | NURSING ---
pt down to ac from the er- into ac 5- on levo gtt , on heart monitor. pt a/o times three. dr veloz in room with pt and doing ART line.
[2023-03-11] MEDS: Bupivacaine 0.25% 30 ML Vial (08:18)
--- NOTE | 2023-03-11 08:24 | PCM.OPRPT ---
Report of Operation Date of Procedure: 03/11/23 Pre-Operative Diagnosis: Acute cholecystitis Post-Operative Diagnosis: Acute cholecystitis Surgery/Procedure Performed:: Laparoscopic cholecystectomy Type of Anesthesia: General/Regional Specimen's removed: Gallbladder Estimated Blood Loss (mL): 20 Description of Procedure: Patient was brought back to the operating room and general anesthesia was induced. The abdomen was prepped and draped in usual sterile fashion. A midline incision was made superior to the umbilicus deepened to the fascia. The fascia was elevated and incised. Finger sweep was performed and then a port was placed into the abdomen and the abdomen was insufflated 15 mmHg. Patient was placed in reverse Trendelenburg position. Under direct visualization an epigastric 5 mm port was placed as well as 2 right subcostal 5 mm ports. The gallbladder was aspirated and there was purulent material. The gallbladder was then grasped and elevated to the right upper quadrant. The peritoneum was stripped from the infundibulum. The infundibulum was retracted. A clamp was placed across the infundibulum and a needle was placed into the gallbladder but cholangiograms were unable to be performed as the catheter would not flush. The clamp was removed and the anatomy was reviewed. It appeared to be of the structures only entering the gallbladder. The cystic artery and cystic duct were both clipped and divided. Next the electrocautery hook was used to take the gallbladder off the gallbladder fossa. There was some oozing from the gallbladder fossa. Argon beam coagulation was used to maintain hemostasis. Surgicel powder was then sprayed over the gallbladder fossa. The abdomen is irrigated and suctioned dry and there is good hemostasis. The gallbladder was removed through a bag. The fascia was closed with interrupted 0 Vicryl sutures. Subcutaneous tissue was irrigated and suctioned dry. All the skin incisions were injected with local anesthetic and closed with interrupted 4-0 Monocryl sutures. Steri-Strips and bandages were applied. Patient was taken to ICU after surgery. Admit VTE Documentation VTE Mechan Device Prophylaxis: SCD's
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
--- NOTE | 2023-03-11 09:23 | CASEMGMT ---
Discharge Planning Updates sent to [place] via [facility]. Asked if precert will be needed. Awaiting response. Nasra De Anda, Discharge Planning Asst.
[2023-03-11] MEDS: 0.9% Normal Saline 1,000 ML 75 ML IV (09:24)
[2023-03-11] MEDS: Fluticasone 0.05% 1 SPRAY NASAL.SRY 2 SPRAY NASAL ×2 (09:39→20:51)
--- NOTE | 2023-03-11 10:18 | CASEMGMT ---
Discharge Planning Per [facility], patient will not require precert to return. Nasra Andrew, Discharge Planning Asst.
[2023-03-11 12:53] LABS: Pathologist Review Reviewed
--- NOTE | 2023-03-11 13:29 | CASEMGMT ---
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 Plan is for patient to return at d/c. Marilynn LYNNE
[2023-03-11] MEDS: Acetaminophen 325 MG Tablet 650 MG PO ×2 (13:43→21:21)
--- NOTE | 2023-03-11 17:42 | PCM.HOSP.N ---
Hospitalist Note Patient was seen and examined briefly today, I talked with general surgery about her care. She underwent a laparoscopic cholecystectomy, she appears to be septic at this time but her blood pressure remains good for now, she is not on any pressor agents, she does have an A-line in place and pulmonary medicine is seeing her for ongoing care. At this time, I do not think any changes need to be made in her medications-I have decided to increase her IV rate to 100 cc an hour, she was placed on a clear liquid diet under direction of general surgery. Patient is currently on 3 L of oxygen via nasal cannula. Heart rate and rhythm is regular at this time, lungs are clear to auscultation bilaterally anteriorly. Patient is alert, she is oriented x3 and appropriate.
[2023-03-11] MEDS: 0.9% Normal Saline 1,000 ML 100 ML IV (20:51)
[2023-03-12] VITALS (17 sets, daily range): BP systolic 93–125; BP diastolic 46–68; PULSE 67–83; RESP 12–23; TEMP 37.3–37.9; O2SAT 92–96; BMI 47.1
[2023-03-12 04:07] LABS: Absolute Lymphocyte Count 3.04 X10^3/uL (0.83-4.51); Absolute Neutrophil Count 10.8 X10^3/uL (2.0-7.7); Basophil# 0.04 X10^3/uL; Basophil% 0.3 % (0-1); Eosinophil# 0.26 X10^3/uL; Eosinophils% 1.7 % (0-5); Hematocrit 39.9 % (37-47); Hemoglobin 12.1 g/dL (12.0-15.0); Lymphocyte # 3.04 X10^3/ul (0.83-4.51); Lymphocyte % 19.9 % (19-41); Mean Corp Hgb Conc 30.3 g/dL (32-36); Mean Corpuscular Hgb 29.8 pg (27.0-32.0); Mean Corpuscular Volume 98.3 fL (81-99); Mean Platelet Vol. 10.2 fl (6.2-12.0); Monocyte# 1.03 X10^3/uL; Monocyte% 6.8 % (0-10); NRBC Flagged by Analyzer 0 % (0-5); Neutrophil # 10.82 X10^3/uL (2.7-7.7); Neutrophil % 70.9 % (47-70); Platelet Count 231 K/mm3 (150-450); RBC Distribution Width CV 13.6 % (11.6-14.6); RBC Distribution Width SD 49.3 fl (35.1-43.9); Red Blood Count 4.06 M/mm3 (4.2-5.4); White Blood Count 15.3 K/mm3 (4.4-11.0)
[2023-03-12 04:59] LABS: ALB/GLOB Ratio 0.7 RATIO (0.9-2.4); AST(SGOT) 48 U/L (15-37); Alanine Aminotransfer ALT/SGPT 63 U/L (13-56); Albumin, Serum 2.4 g/dL (3.2-5.0); Alkaline Phosphatase 74 U/L (45-117); Anion Gap 3 (5-15); BUN 11 mg/dL (7-18); BUN/Creat Ratio 18.7 RATIO (10-20); Calcium,Total 7.6 mg/dL (8.5-10.1); Chloride 108 mmol/L (98-107); Creatinine, Serum 0.59 mg/dL (0.55-1.02); EST Glomerular Filtration Rate 110 mL/min (>60); Est Glom Filt Rate - Afr Amer 134 mL/min (>60); Estimated Creatinine Clearance 97.37 ml/min; Globulin 3.4 g/dL (2.2-4.2); Glucose 141 mg/dL (74-106); Potassium 3.6 mmol/L (3.5-5.1); Protein, Total 5.8 g/dL (6.4-8.2); Sodium Level 140 mmol/L (136-145)
[2023-03-12] MEDS: 0.9% Normal Saline 1,000 ML 100 ML IV (06:26)
[2023-03-12] MEDS: Furosemide 20 MG/2 ML VIAL IV (07:58)
[2023-03-12] MEDS: Acetaminophen 325 MG Tablet 650 MG PO ×2 (07:58→20:08)
--- NOTE | 2023-03-12 08:39 | PN.SURG_ITS ---
Subjective Subjective Patient is not passing any flatus but she did tolerate clear liquids. She is complaining of bloating and swelling in her legs and arms Objective Data Objective Data Vital Signs: Vital Signs Temp Pulse Resp BP Pulse Ox O2 Del Method O2 Flow Rate 100.2 F H 82 23 H 111/65 92 Nasal Cannula 3 03/12/23 08:00 03/12/23 08:00 03/12/23 08:00 03/12/23 08:00 03/12/23 08:00 03/12/23 08:00 03/12/23 08:00 Oxygen Flow Rate (L/min) 3 Oxygen Delivery Method Nasal Cannula Weight: 301 lb 2.423 oz Body Mass Index (BMI) 47.1 Intake & Output: Intake and Output for Last 24 Hours 03/10/23 03/11/23 03/12/23 23:59 23:59 23:59 Intake Total 4785.65 / 4785.65 1056.66 / 1056.66 Output Total 1575 / 1750 1000 / 1000 Balance 3210.65 / 3035.65 56.66 / 56.66 Lab / Micro Data 03/12/23 04:00 03/12/23 04:00 Labs: Laboratory Results - last 24 hr 03/10/23 22:49: Diff Path Review Reviewed 03/12/23 04:00: WBC 15.3 H, RBC 4.06 L, Hgb 12.1, Hct 39.9, MCV 98.3, MCH 29.8, MCHC 30.3 L D, RDW Std Deviation 49.3 H, RDW Coeff of Christine 13.6, Plt Count 231, MPV 10.2, Immature Gran % (Auto) 0.400, Neut % (Auto) 70.9 H, Lymph % (Auto) 19.9, [place] % (Auto) 6.8, Eos % (Auto) 1.7, Baso % (Auto) 0.3, Absolute Neuts (auto) 10.8 H, Absolute Lymphs (auto) 3.04, Nucleated RBC % 0, Sodium 140, Pot assium 3.6, Chloride 108 H, Carbon Dioxide 29.0, Anion Gap 3 L, BUN 11, Creatinine 0.59, Estim Creat Clear Calc 97.37, Est GFR (MDRD) Af Amer 134, Est GFR (MDRD) Non-Af 110, BUN/Creatinine Ratio 18.7, Glucose 141 H, Calcium 7.6 L, Total Bilirubin 0.80, AST 48 H, ALT 63 H, Alkaline Phosphatase 74, Total Protein 5.8 L, Albumin 2.4 L, Globulin 3.4, Albumin/Globulin Ratio 0.7 L Physical Exam Const oriented x3 and no apparent distress Resp normal respiratory effort GI soft to palpation and non-tender Assessment & Plan Assessment/Plan (1) Acute emphysematous cholecystitis: PLAN: Patient is doing well. She tolerated clear liquids. I will continue clears until she starts passing flatus. Her blood pressure is improved and so is her pulse rate. I will stop her IV fluids as she appears edematous and she does take Lasix at baseline. The hospitalist can resume her Lasix if they need. She could probably be moved from the ICU today. Continue antibiotics. Isreal Olivo MD Pager: [facility] [address] [place] [address], [address] [place] [phone] Office:
--- NOTE | 2023-03-12 10:34 | CASEMGMT ---
Social Work SW met with pt who confirms she plans to return to the [facility] at discharge. Lanie updated that per physician, pt is not ready for discharge at this time. Plan: Lanie, when medically ready OSWALDO Moncada
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
--- NOTE | 2023-03-12 15:49 | PN.HOSP_ITS ---
Reason for Visit Reason for Visit: Diagnoses Sepsis, unspecified organism (03/11/23) Acidosis, unspecified (03/11/23) Acute cholecystitis (03/11/23) Tachycardia, unspecified (03/11/23) Severe sepsis without septic shock (03/11/23) Subjective Subjective Patient was seen in the ICU this morning, she appeared medically stable, her blood pressure was slightly low with systolic readings in the 90s, patient was asymptomatic. Patient complained of feeling edematous this morning and I gave her 120 mg IV Lasix dose. Objective Data Objective Data Vital Signs: Vital Signs Temp Pulse Resp BP Pulse Ox O2 Del Method O2 Flow Rate 99.7 F H 78 19 H 103/64 96 Nasal Cannula 3 03/12/23 12:00 03/12/23 14:00 03/12/23 14:00 03/12/23 14:00 03/12/23 14:00 03/12/23 14:00 03/12/23 14:35 Oxygen Flow Rate (L/min) 3 Oxygen Delivery Method Nasal Cannula Weight: 136.6 kg Body Mass Index (BMI) 47.1 Intake & Output: Intake and Output for Last 24 Hours 03/10/23 03/11/23 03/12/23 23:59 23:59 23:59 Intake Total 4785.65 / 4785.65 1106.66 / 1106.66 Output Total 1575 / 1750 2400 / 2400 Balance 3210.65 / 3035.65 -1293.34 / -1293.34 Lab / Micro Data 03/12/23 04:00 03/12/23 04:00 Labs: Laboratory Results - last 24 hr 03/12/23 04:00: WBC 15.3 H, RBC 4.06 L, Hgb 12.1, Hct 39.9, MCV 98.3, MCH 29.8, MCHC 30.3 L D, RDW Std Deviation 49.3 H, RDW Coeff of Christine 13.6, Plt Count 231, MPV 10.2, Immature Gran % (Auto) 0.400, Neut % (Auto) 70.9 H, Lymph % (Auto) 19.9, [place] % (Auto) 6.8, Eos % (Auto) 1.7, Baso % (Auto) 0.3, Absolute Neuts (a uto) 10.8 H, Absolute Lymphs (auto) 3.04, Nucleated RBC % 0, Sodium 140, Potassium 3.6, Chloride 108 H, Carbon Dioxide 29.0, Anion Gap 3 L, BUN 11, Creatinine 0.59, Estim Creat Clear Calc 97.37, Est GFR (MDRD) Af Amer 134, Est GFR (MDRD) Non-Af 110, BUN/Creatinine Ratio 18.7, Glucose 141 H, Calcium 7.6 L, Total Bilirubin 0.80, AST 48 H, ALT 63 H, Alkaline Phosphatase 74, Total Protein 5.8 L, Albumin 2.4 L, Globulin 3.4, Albumin/Globulin Ratio 0.7 L Physical Exam Const alert, oriented x3 and no apparent distress Constitutional Narrative: Patient is morbidly obese General Appearance: cooperative, well kempt and well developed Orientation / Consciousness: awake, oriented to person, oriented to place and oriented to time HEENT normocephalic, head/scalp atraumatic and moist oral mucous membranes Eyes PERRL, EOMs intact bilaterally and conjunctivae normal Neck supple, no JVD, thyroid normal and no carotid bruits General: trachea midline Resp normal respiratory effort, no retractions, no use of accessory muscles and clear to auscultation bilaterally Auscultation: Negative for rales, rhonchi or wheezes Cardio regular rate, regular rhythm, S1 normal heart sound, S2 normal heart sound, no murmurs, no rub and no gallops Extremity Extremity Narrative: Patient has generalized edema noted in her left hand, there is a slight contracture of her left hand noted Skin no rashes or lesions noted General Skin Exam: no breakdown Neuro oriented x3, CN's II-XII intact bilaterally and no sensory deficits noted Sensorium / Orientation: awake and alert Speech: speech normal Psych affect normal Assessment & Plan Assessment/Plan (1) Acute emphysematous cholecystitis: PLAN: Plan 1. Sepsis secondary to cholecystitis-blood cultures are pending at this time, continue Zosyn, IV fluids were stopped due to edema. Patient appears medically stable for transfer to [facility] 3. 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
--- NOTE | 2023-03-12 16:39 | NURSING ---
Oxycodone ordered for pain relief. Per allergy list, patient vomits with codeine. This RN questioned the patient and she said she does OK with oxycodone and used to take it, then weaned herself off of it.
[2023-03-12] MEDS: Ondansetron 4 MG/2 ML Vial IV (21:24)
[2023-03-12] MEDS: 0.9% Saline Lock 10 ML Syringe IV (21:25)
[2023-03-12] MEDS: Baclofen 10 MG Tablet 20 MG PO (22:00)
[2023-03-12] MEDS: Potassium Chloride Oral Tablet 10 MEQ PO (22:01)
[2023-03-12] MEDS: Gabapentin 400 MG Capsule PO (22:01)
[2023-03-13] VITALS (9 sets, daily range): BP systolic 102–135; BP diastolic 49–83; PULSE 65–92; RESP 16; TEMP 36.6–37.2; O2SAT 85–97; BMI 45.6
[2023-03-13] MEDS: Gabapentin 100 MG Capsule 200 MG PO (03:26)
[2023-03-13] MEDS: oxyCODONE 5 MG Tablet PO ×2 (07:55→13:34)
[2023-03-13] MEDS: Spironolactone 25 MG Tablet PO (07:55)
[2023-03-13] MEDS: Furosemide 20 MG Tablet PO (07:55)
[2023-03-13] MEDS: Potassium Chloride Oral Tablet 10 MEQ PO ×2 (07:55→21:15)
[2023-03-13] MEDS: FLUoxetine 20 MG Capsule PO (07:55)
[2023-03-13] MEDS: Gabapentin 400 MG Capsule PO ×3 (07:55→16:24)
[2023-03-13] MEDS: Fluticasone 0.05% 1 SPRAY NASAL.SRY 2 SPRAY NASAL ×2 (07:56→21:15)
[2023-03-13 08:27] LABS: Absolute Lymphocyte Count 2.41 X10^3/uL (0.83-4.51); Absolute Neutrophil Count 8.7 X10^3/uL (2.0-7.7); Basophil# 0.03 X10^3/uL; Basophil% 0.2 % (0-1); Eosinophil# 0.47 X10^3/uL; Eosinophils% 3.8 % (0-5); Hematocrit 40.7 % (37-47); Hemoglobin 12.8 g/dL (12.0-15.0); Lymphocyte # 2.41 X10^3/ul (0.83-4.51); Lymphocyte % 19.7 % (19-41); Mean Corp Hgb Conc 31.4 g/dL (32-36); Mean Corpuscular Hgb 30.5 pg (27.0-32.0); Mean Corpuscular Volume 97.1 fL (81-99); Mean Platelet Vol. 10.2 fl (6.2-12.0); Monocyte# 0.63 X10^3/uL; Monocyte% 5.2 % (0-10); NRBC Flagged by Analyzer 0 % (0-5); Neutrophil # 8.65 X10^3/uL (2.7-7.7); Neutrophil % 70.9 % (47-70); Platelet Count 259 K/mm3 (150-450); RBC Distribution Width CV 13.3 % (11.6-14.6); RBC Distribution Width SD 47.8 fl (35.1-43.9); Red Blood Count 4.19 M/mm3 (4.2-5.4); White Blood Count 12.2 K/mm3 (4.4-11.0)
[2023-03-13 09:10] LABS: ALB/GLOB Ratio 0.6 RATIO (0.9-2.4); AST(SGOT) 32 U/L (15-37); Alanine Aminotransfer ALT/SGPT 52 U/L (13-56); Albumin, Serum 2.5 g/dL (3.2-5.0); Alkaline Phosphatase 79 U/L (45-117); Anion Gap 3 (5-15); BUN 8 mg/dL (7-18); BUN/Creat Ratio 13.1 RATIO (10-20); Calcium,Total 8.7 mg/dL (8.5-10.1); Chloride 101 mmol/L (98-107); Creatinine, Serum 0.61 mg/dL (0.55-1.02); EST Glomerular Filtration Rate 105 mL/min (>60); Est Glom Filt Rate - Afr Amer 128 mL/min (>60); Estimated Creatinine Clearance 94.18 ml/min; Globulin 3.9 g/dL (2.2-4.2); Glucose 123 mg/dL (74-106); Potassium 3.8 mmol/L (3.5-5.1); Protein, Total 6.4 g/dL (6.4-8.2); Sodium Level 137 mmol/L (136-145)
--- NOTE | 2023-03-13 09:44 | PN.SURG_ITS ---
Subjective Subjective Patient reported a little bit of nausea with her regular diet yesterday but she does not report any issue this morning. She says she is having some mild right upper quadrant pain with the pain medicine is taken care of it. Objective Data Objective Data Vital Signs: Vital Signs Temp Pulse Resp BP Pulse Ox O2 Del Method O2 Flow Rate 98.4 F 72 16 110/54 L 94 Nasal Cannula 2 03/13/23 08:40 03/13/23 08:40 03/13/23 08:40 03/13/23 08:40 03/13/23 09:15 03/13/23 09:15 03/13/23 09:15 Oxygen Flow Rate (L/min) 2 Oxygen Delivery Method Nasal Cannula Weight: 290 lb 5.581 oz Body Mass Index (BMI) 45.6 Intake & Output: Intake and Output for Last 24 Hours 03/11/23 03/12/23 03/13/23 23:59 23:59 23:59 Intake Total 4785.65 / 4785.65 1156.66 / 1156.66 50 / 50 Output Total 1575 / 1750 3750 / 3750 650 / 650 Balance 3210.65 / 3035.65 -2593.34 / -2593.34 -600 / -600 Lab / Micro Data 03/13/23 08:12 03/13/23 08:12 Labs: Laboratory Results - last 24 hr 03/13/23 08:12: WBC 12.2 H, RBC 4.19 L, Hgb 12.8, Hct 40.7, MCV 97.1, MCH 30.5, MCHC 31.4 L, RDW Std Deviation 47.8 H, RDW Coeff of Christine 13.3, Plt Count 259, MPV 10.2, Immature Gran % (Auto) 0.200, Neut % (Auto) 70.9 H, Lymph % (Auto) 19.7, [place] % (Auto) 5.2, Eos % (Auto) 3.8, Baso % (Auto) 0.2, Absolute Neuts (auto) 8.7 H, Absolute Lymphs (auto) 2.41, Nucleated RBC % 0, Sodium 137, Potassium 3.8, Chloride 101, Carbon Dioxide 33.0 H, Anion Gap 3 L, BUN 8, Creatinine 0.61, Estim Creat Clear Calc 94.18, Est GFR (MDRD) Af Amer 128, Est GFR (MDRD) Non-Af 105, BUN/Creatinine Ratio 13.1, Glucose 123 H, Calcium 8.7, Total Bilirubin 0.60, AST 32, ALT 52, Alkaline Phosphatase 79, Total Protein 6.4, Albumin 2.5 L, Globulin 3.9, Albumin/Globulin Ratio 0.6 L Physical Exam Const oriented x3 and no apparent distress Resp normal respiratory effort GI soft to palpation Palpation: tender Assessment & Plan Assessment/Plan (1) Acute emphysematous cholecystitis: PLAN: Patient seems to be doing well and her white count is coming down. Her blood pressure was stable. I advance her to regular diet yesterday which she is slowly tolerating. Cultures are still pending but she would likely go home on oral antibiotics. If she tolerates diet she can go home later today versus tomorrow depending on when the hospitalist already to let her go. Isreal Olivo MD Pager: [facility] [address] [place] [address], [address] [place] [address] Office:
--- NOTE | 2023-03-13 10:05 | CASEMGMT ---
Advanced Directive Validation Spoke with patient who states she does not have any POAHC or Living Will in place. Patient states I'm my own power of traffic law attorney. Educated patient to [place] law as far as decision making if there are no advanced directives in place. Educated that by completing the advanced directives, this does not mean patient cannot make own decisions, just designates the person patient trusts most to help patient if patient is ever unable to make own decisions. Patient reports will consider this and think about for the future. Educated patient that hospital socia work or even social media specialist at the nursing facility can assist should patient choose to complete in the future. *Patient reports to have 2 adult children.* -TONY Bonner
--- NOTE | 2023-03-13 10:31 | CASEMGMT ---
Social Work Met with patient today to check on need for phone auto wrecker, as message from [facility] in [place] questioning whether patient needs this. Patient reports to have the auto wrecker and is good. 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 Patient reports daughter Haleigh can be called at time of discharge. Confirmed daughter's contact number and added this to demographic data in the EMR. GREEN SHEET on chart in case of a weekend discharge. Confirmed number for report and fax number for orders with [facility], which have been placed on the green sheet. PLAN: Return to [facility], intermediate level of care. 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 GREEN SHEET on chart to follow in case of weekend discharge. -TONY Bonner
--- NOTE | 2023-03-13 19:09 | PCM.PN.HOSP ---
Reason for Visit Reason for Visit: Diagnoses Sepsis, unspecified organism (03/11/23) Acidosis, unspecified (03/11/23) Acute cholecystitis (03/11/23) Tachycardia, unspecified (03/11/23) Severe sepsis without septic shock (03/11/23) Subjective Subjective Patient was seen and examined today, she is on room air at this time, her white blood cell count today was 12.2, blood cultures have been negative so far. Patient remains on Zosyn. Objective Data Objective Data Vital Signs: Vital Signs Temp Pulse Resp BP Pulse Ox O2 Del Method O2 Flow Rate 98.9 F 65 16 102/49 L 97 Room Air 2 03/13/23 15:12 03/13/23 15:12 03/13/23 15:12 03/13/23 15:12 03/13/23 15:12 03/13/23 15:12 03/13/23 11:32 Oxygen Flow Rate (L/min) 2 Oxygen Delivery Method Room Air Weight: 131.7 kg Body Mass Index (BMI) 45.6 Intake & Output: Intake and Output for Last 24 Hours 03/11/23 03/12/23 03/13/23 23:59 23:59 23:59 Intake Total 4785.65 / 4785.65 1156.66 / 1156.66 750 / 750 Output Total 1575 / 1750 3750 / 3750 1600 / 1600 Balance 3210.65 / 3035.65 -2593.34 / -2593.34 -850 / -850 Lab / Micro Data 03/13/23 08:12 03/13/23 08:12 Labs: Laboratory Results - last 24 hr 03/13/23 08:12: WBC 12.2 H, RBC 4.19 L, Hgb 12.8, Hct 40.7, MCV 97.1, MCH 30.5, MCHC 31.4 L, RDW Std Deviation 47.8 H, RDW Coeff of Christine 13.3, Plt Count 259, MPV 10.2, Immature Gran % (Auto) 0.200, Neut % (Auto) 70.9 H, Lymph % (Auto) 19.7, [place] % (Auto) 5.2, Eos % (Auto) 3.8, Baso % (Auto) 0.2, Absolute Neuts (auto) 8.7 H, Absolute Lymphs (auto) 2.41, Nucleated RBC % 0, Sodium 137, Potassium 3.8, Chloride 101, Carbon Dioxide 33.0 H, Anion Gap 3 L, BUN 8, Creatinine 0.61, Estim Creat Clear Calc 94.18, Est GFR (MDRD) Af Amer 128, Est GFR (MDRD) Non-Af 105, BUN/Creatinine Ratio 13.1, Glucose 123 H, Calcium 8.7, Total Bilirubin 0.60, AST 32, ALT 52, Alkaline Phosphatase 79, Total Protein 6.4, Albumin 2.5 L, Globulin 3.9, Albumin/Globulin Ratio 0.6 L Micro: Microbiology 03/11/23 01:40 Blood Culture (Wb) - Anticubital Left Blood Culture - Preliminary No growth in 48 hours. 03/11/23 01:45 Blood Culture (Wb) - Anticubital Right Blood Culture - Preliminary No growth in 48 hours. 03/11/23 10:15 Urine Catheter - Elias Urine Culture - Final Culture exhibits no growth. Physical Exam Narrative alert, oriented x3 and no apparent distress Constitutional Narrative: Patient is morbidly obese General Appearance: cooperative, well kempt and well developed Orientation / Consciousness: awake, oriented to person, oriented to place and oriented to time HEENT normocephalic, head/scalp atraumatic and moist oral mucous membranes Eyes PERRL, EOMs intact bilaterally and conjunctivae normal Neck supple, no JVD, thyroid normal and no carotid bruits General: trachea midline Resp normal respiratory effort, no retractions, no use of accessory muscles and clear to auscultation bilaterally Auscultation: Negative for rales, rhonchi or wheezes Cardio regular rate, regular rhythm, S1 normal heart sound, S2 normal heart sound, no murmurs, no rub and no gallops Extremity Extremity Narrative: Patient has generalized edema noted in her left hand, there is a slight contracture of her left hand noted Skin no rashes or lesions noted General Skin Exam: no breakdown Neuro oriented x3, CN's II-XII intact bilaterally and no sensory deficits noted Sensorium / Orientation: awake and alert Speech: speech normal Psych affect normal Assessment & Plan Assessment/Plan (1) Sepsis: QUALIFIERS: Sepsis type: sepsis due to unspecified organism Sepsis acute organ dysfunction status: with acute organ dysfunction Severe sepsis acute organ dysfunction type: unspecified Severe sepsis shock status: without septic shock Qualified Code(s): A41.9 - Sepsis, unspecified organism; R65.20 - Severe sepsis without septic shock (2) Acute emphysematous cholecystitis: PLAN: Plan 1. Sepsis secondary to cholecystitis-blood cultures are negative at this time, continue Zosyn, IV fluids were stopped due to edema. 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
[2023-03-13] MEDS: Acetaminophen 325 MG Tablet 650 MG PO (20:22)
[2023-03-13] MEDS: Baclofen 10 MG Tablet 20 MG PO (21:15)
[2023-03-14] MEDS: Acetaminophen 325 MG Tablet 650 MG PO ×2 (02:07→12:28)
[2023-03-14] MEDS: Gabapentin 100 MG Capsule 200 MG PO (02:07)
[2023-03-14 03:17] VITALS: BMI 45.5
[2023-03-14] MEDS: oxyCODONE 5 MG Tablet PO ×2 (05:35→12:28)
--- NOTE | 2023-03-14 07:33 | PN.SURG_ITS ---
Subjective Subjective Patient seen and examined during AM rounds. She notes that every day she is feeling a little bit better. She denies any issues with her regular diet and specifically denies any nausea or vomiting. Is noted that she has had several days since there has been a bowel movement so nursing requests ability to start a suppository. Objective Data Objective Data Vital Signs: Vital Signs Temp Pulse Resp BP Pulse Ox O2 Del Method O2 Flow Rate 98 F 92 16 135/83 H 95 Nasal Cannula 2 03/13/23 21:15 03/13/23 21:15 03/13/23 21:15 03/13/23 21:15 03/13/23 21:15 03/13/23 21:15 03/13/23 21:15 Oxygen Flow Rate (L/min) 2 Oxygen Delivery Method Nasal Cannula Weight: 289 lb 14.526 oz Body Mass Index (BMI) 45.5 Intake & Output: Intake and Output for Last 24 Hours 03/12/23 03/13/23 03/14/23 23:59 23:59 23:59 Intake Total 1156.66 / 1156.66 750 / 750 50 / 50 Output Total 3750 / 3750 1600 / 1900 900 / 900 Balance -2593.34 / -2593.34 -850 / -1150 -850 / -850 Lab / Micro Data 03/13/23 08:12 03/13/23 08:12 Labs: Laboratory Results - last 24 hr 03/13/23 08:12: WBC 12.2 H, RBC 4.19 L, Hgb 12.8, Hct 40.7, MCV 97.1, MCH 30.5, MCHC 31.4 L, RDW Std Deviation 47.8 H, RDW Coeff of Christine 13.3, Plt Count 259, MPV 10.2, Immature Gran % (Auto) 0.200, Neut % (Auto) 70.9 H, Lymph % (Auto) 19.7, [place] % (Auto) 5.2, Eos % (Auto) 3.8, Baso % (Auto) 0.2, Absolute Neuts (auto) 8.7 H, Absolute Lymphs (auto) 2.41, Nucleated RBC % 0, Sodium 137, Potassium 3.8, Chloride 101, Carbon Dioxide 33.0 H, Anion Gap 3 L, BUN 8, Creatinine 0.61, Estim Creat Clear Calc 94.18, Est GFR (MDRD) Af Amer 128, Est GFR (MDRD) Non-Af 105, BUN/Creatinine Ratio 13.1, Glucose 123 H, Calcium 8.7, Total Bilirubin 0.60, AST 32, ALT 52, Alkaline Phosphatase 79, Total Protein 6.4, Albumin 2.5 L, Globulin 3.9, Albumin/Globulin Ratio 0.6 L Micro: Microbiology 03/11/23 01:40 Blood Culture (Wb) - Anticubital Left Blood Culture - Preliminary No growth in 48 hours. 03/11/23 01:45 Blood Culture (Wb) - Anticubital Right Blood Culture - Preliminary No growth in 48 hours. 03/11/23 10:15 Urine Catheter - Elias Urine Culture - Final Culture exhibits no growth. Physical Exam Const oriented x3 and no apparent distress Neck Neck Narrative: Right neck CVC in place Resp normal respiratory effort GI GI Narrative: Obese, nondistended, operative dressings intact with minor strikethrough but when these were removed Steri-Strips remain intact. Patient appropriately tender to palpation about incisions. Assessment & Plan Assessment/Plan (1) Acute emphysematous cholecystitis: PLAN: Patient postoperative day 3 from laparoscopic cholecystectomy. She seems to be doing well. She is afebrile and her white count was almost normal yesterday. Her abdominal exam is benign. Plan is to transition her IV Zosyn to p.o. Augmentin and then discharge her to her nursing facility. Plan discussed with hospitalist, Dr. Ferrari Charges/Coding Visit Charges Inpatient E&M: 75554 Subs Hosp L2
--- NOTE | 2023-03-14 08:00 | US_ITS ---
STUDY: THYROID ULTRASOUND REASON FOR EXAM: Female, 63 years old. Abnormal thyroid on CTA chest TECHNIQUE: Ultrasound evaluation of the thyroid was performed with real-time and static garcia-scale imaging. COMPARISON: CT of the chest 03/10/2023 FINDINGS: RIGHT LOBE: The right lobe of the thyroid gland measures 6.9 x 2.4 x 3.2 cm. There is a heterogeneous echotexture. Innumerable nodules of the right lobe with little normal intervening parenchyma consistent with a multinodular goiter. Nodule 1:20 x 17 x 13 mm mixed cystic and solid hypoechoic wider than tall smoothly marginated nodule with no echogenic foci (TR 3) in the superior right lobe and follow-up ultrasound is recommended in one year. LEFT LOBE: The left lobe of the thyroid gland measures 7.6 x 3.7 x 3.5 cm. There is a heterogeneous echotexture. Innumerable nodules of the left lobe with little normal intervening parenchyma consistent with a multinodular goiter. Nodule 2:22 x 18 x 16 mm mixed cystic and solid hypoechoic wider than tall smoothly marginated nodule with no echogenic foci (TR 3) in the lateral left lobe and follow-up ultrasound is recommended in one year. ISTHMUS: The isthmus measures 4 mm thick. . The regional lymph nodes are normal. US/Thyroid IMPRESSION: Multinodular goiter and follow-up ultrasound is recommended in one year. Electronically Signed: Itz Jerome MD at 17:36 EDT ,
[2023-03-14 08:06] VITALS: BP 106/62; PULSE 67; RESP 16; TEMP 36.9; O2SAT 94
[2023-03-14] MEDS: Gabapentin 400 MG Capsule PO ×2 (08:20→12:27)
[2023-03-14] MEDS: Fluticasone 0.05% 1 SPRAY NASAL.SRY 2 SPRAY NASAL (10:42)
[2023-03-14] MEDS: Furosemide 20 MG Tablet PO (10:43)
[2023-03-14] MEDS: FLUoxetine 20 MG Capsule PO (10:43)
[2023-03-14] MEDS: Spironolactone 25 MG Tablet PO (10:43)
[2023-03-14] MEDS: Potassium Chloride Oral Tablet 10 MEQ PO (10:43)
[2023-03-14] MEDS: Bisacodyl 10 MG Suppository RC (10:52)
[2023-03-14 12:17] VITALS: BP 103/61; PULSE 67; RESP 18; TEMP 37; O2SAT 92
--- NOTE | 2023-03-14 13:34 | PCM.TXEXTCAR ---
Diet Diet Order/Speech Therapy: 03/12/23 16:16 Diet: Regular - ADA 2000 gemini diet Is pt able to select menu?: Yes Wound(s) abd: Wound Type: Surgical Incision Therapies Weight Bearing: Partial weight bearing (Resume previous activity level) Problem/Diagnosis (1) Sepsis: Status: Acute Code(s): A41.9 - Sepsis, unspecified organism (2) Acute emphysematous cholecystitis: Status: Acute Code(s): K81.0 - Acute cholecystitis Plan 1. 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-complicates care, medical course, recovery, and prognosis, patient is in a long-term nursing facility #4 chronic anxiety/depression-patient is on Valium and Prozac, monitor, evaluate, assess, and treat #5 1.8 cm thick walled peripherally enhancing dominant lesion of the right lobe of the thyroid-patient underwent a thyroid ultrasound today, she will need follow-up with her PCP regarding this thyroid lesion Total clinical time spent by myself addressing the patient's medical issues, reviewing all of her data, and collaborating with the patient's care team: 35 minutes Allergies/Procedures Done in Hospital Allergies bee venom protein (honey bee) [bee stings] Allergy (Severe, Verified 03/10/23 22:25) Anaphylaxis aspartame Allergy (Mild, Verified 03/10/23 22:25) unknown codeine Allergy (Mild, Verified 10/22/20 13:36) vomit diphenhydramine Allergy (Mild, Verified 03/10/23 22:25) aggressive honey Allergy (Mild, Verified 03/10/23 22:25) Other mushroom Allergy (Mild, Verified 03/10/23 22:25) unknown Procedures: - (Laparoscopic cholecystectomy) Type of Care/Length of Stay Estimated LOS: More Than 30 Days Type of Care Needed: Intermediate Rehab Potential: Fair Prognosis: Good Additional Orders/Day of Discharge H&P will serve as current which was dated: 03/11/23 Day of Discharge: 03/14/23 Discharge Plan Admission Admit Date/Time: 08/30/23 02:34 Primary Reason for Your Visit: Acute cholecystitis Attending Provider: Jonathan Goins Primary Care Provider: Umair Rosario Consulting Providers: Ran Boswell; Isreal Olivo; Artemio Ayala Instructions Additional Instructions / Restrictions: Patient will need follow-up with her family physician/attending concerning her thyroid ultrasound results which are pending at the time of the transfer back to [facility], patient had a 1.8 cm lesion in the right lobe of her thyroid which will be further defined on the thyroid ultrasound done on 03/14/2023. Discharge Orders/Prescriptions Prescriptions: New diazepam 2 mg Tablet 2 mg PO TID PRN PRN (Reason: Anxiety) Qty: 9 0RF gabapentin 400 mg Capsule 400 mg PO TIDCM Qty: 0 0RF baclofen 10 mg Tablet 20 mg PO HS Qty: 0 0RF gabapentin 100 mg Capsule 200 mg PO 0200 Qty: 0 0RF amoxicillin-pot clavulanate [Augmentin] 500-125 mg tablet 1 tab PO TID Qty: 15 0RF Rx Instructions: take with meals, take one tid with meals for 15 doses Continued furosemide [Lasix] 20 mg tablet 20 mg PO DAILY omeprazole 20 mg capsule,delayed release(DR/EC) 20 mg PO DAILY cholecalciferol (vitamin D3) 1,000 unit capsule 2,000 unit PO DAILY bisacodyl 10 mg suppository 10 mg RC DAILY PRN (Reason: Constipation) Culturelle 10 billion cell capsule 1 cap PO DAILY Rx Instructions: give with food (meal/snack) Excedrin Migraine 250-250-65 mg tablet 1 - 2 tab PO DAILY PRN (Reason: Migraine Symptoms) epinephrine [EpiPen] 0.3 mg/0.3 mL auto-injector 0.3 mg IM ONCE PRN (Reason: bee stings) Rx Instructions: as a single dose fluticasone propionate [Flonase Allergy Relief] 50 mcg/actuation spray,suspension 1 spray INTRANASAL BID Rx Instructions: administer into each nostril potassium chloride [Klor-Con 10] 10 mEq tablet extended release 10 meq PO BID fluoxetine 20 mg capsule 20 mg PO DAILY multivitamin Tablet 1 tab PO DAILY Refresh Optive Advanced 0.5-1-0.5 % drops 1 drp OPHTHALMIC 8-12XD PRN (Reason: Dry Eye) spironolactone [Aldactone] 25 mg tablet 25 mg PO DAILY biotin 5 mg capsule 5 mg PO DAILY calcium citrate 200 mg (950 mg) tablet 600 mg PO DAILY diclofenac sodium [Arthritis Pain (diclofenac)] 1 % gel 2 g topical Q6H PRN PRN (Reason: Knee pain) meloxicam 7.5 mg tablet 7.5 mg PO DAILY PRN (Reason: pain) Discontinued aspirin 81 mg tablet,delayed release (DR/EC) 81 mg PO DAILY Patient Comments: states was not told to hold preop baclofen 20 mg tablet 20 mg PO TID acetaminophen [Tylenol] 325 mg tablet 325 mg PO Q6H PRN (Reason: Pain Or Fever) diazepam [Valium] 2 mg tablet 2 mg PO TID PRN PRN (Reason: Anxiety) gabapentin 400 mg capsule 400 mg PO TID Biofreeze (menthol) 4 % gel 1 applic TOPICAL Q4H PRN PRN (Reason: Knee pain) albuterol sulfate 90 mcg/actuation HFA aerosol inhaler 2 puff INHALATION Q4H PRN (Reason: Sob &/Or Wheezing) fexofenadine [Christina Allergy] 60 mg tablet 180 mg PO Q24H PRN (Reason: Allergies) magnesium oxide 400 mg magnesium capsule 400 mg PO DAILY menthol-zinc oxide 0.15-1 % powder 1 ea TOPICAL TID gabapentin 100 mg capsule 200 mg PO DAILY zinc 50 mg capsule 50 mg PO DAILY benzonatate 100 mg capsule 100 mg PO Q6H PRN (Reason: cough) guaifenesin [Chest Congestion Relief] 400 mg tablet 400 mg PO Q4H PRN (Reason: chest congestion) senna-docusate sodium Tablet 1 tab PO .QAM senna-docusate sodium Tablet 2 tab PO QHS Referrals / Follow Up: Isreal Olivo MD [Med Staff - Active Staff] - In 1 Week Umair Rosario MD [Primary Care Provider] - Disposition Disposition (needs filled in before D/C Order can be placed): NonSkilled NH/Intermed Care (1) Sepsis Qualifiers: Sepsis type: sepsis due to unspecified organism Sepsis acute organ dysfunction status: with acute organ dysfunction Severe sepsis acute organ dysfunction type: unspecified Severe sepsis shock status: without septic shock Qualified Code(s): A41.9 - Sepsis, unspecified organism; R65.20 - Severe sepsis without septic shock
[2023-03-14] MEDS: 0.9% Saline Lock 10 ML Syringe IV (13:57)
--- NOTE | 2023-03-14 14:32 | PCM.DC.SUM ---
Providers Date of Admission: 03/11/23 Date of Discharge: 03/14/23 Primary Care Physician: Dr. Umair Rosario MD Consultations 03/11/23 08:43 Consult: General Surgery Routine Consulting Provider: Isreal Olivo Reason for Consult: Emphysematous cholecystitis EMERGENT Consult: No Notified: Yes Date Notified: 03/11/23 Time Notified: 02:44 Method of Notification: ED Physician Initiated Consult: Line Leader / Pulmonary Medicine Routine Consulting Provider: Artemio Ayala Reason for Consult: Sepsis secondary to cholecystitis EMERGENT Consult: No Notified: Yes Date Notified: 03/11/23 Time Notified: 08:44 Method of Notification: Verbal Reason For Visit: SEPSIS 2NDARY TO EMPHYSEMATOUS CHOLECYSTITIS Diagnosis Discharge Diagnosis (1) Sepsis: Status: Acute Code(s): A41.9 - Sepsis, unspecified organism Qualifiers: Sepsis acute organ dysfunction status: with acute organ dysfunction Sepsis type: sepsis due to unspecified organism Severe sepsis acute organ dysfunction type: unspecified Severe sepsis shock status: without septic shock Qualified Code(s): A41.9 - Sepsis, unspecified organism; R65.20 - Severe sepsis without septic shock (2) Acute emphysematous cholecystitis: Status: Acute Code(s): K81.0 - Acute cholecystitis Plan 1. 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-complicates care, medical course, recovery, and prognosis, patient is in a long-term nursing facility #4 chronic anxiety/depression-patient is on Valium and Prozac, monitor, evaluate, assess, and treat #5 1.8 cm thick walled peripherally enhancing dominant lesion of the right lobe of the thyroid-patient underwent a thyroid ultrasound today, she will need follow-up with her PCP regarding this thyroid lesion Total clinical time spent by myself addressing the patient's medical issues, reviewing all of her data, and collaborating with the patient's care team: 35 minutes Medications at Discharge Home Medications cholecalciferol (vitamin D3) 25 mcg (1,000 unit) capsule 2,000 unit PO DAILY 05/03/18 furosemide 20 mg tablet (Lasix) 20 mg PO DAILY 05/03/18 omeprazole 20 mg capsule,delayed release 20 mg PO DAILY 05/03/18 Lactobacillus rhamnosus GG 10 billion cell capsule (Culturelle) 1 cap PO DAILY 08/24/19 taarscy-kphbwmtdqhkmh-ngdclqln 250 mg-250 mg-65 mg tablet (Excedrin Migraine) 1 - 2 tab PO DAILY PRN Migraine Symptoms 08/24/19 bisacodyl 10 mg rectal suppository 10 mg PA DAILY PRN Constipation 08/24/19 epinephrine 0.3 mg/0.3 mL injection, auto-injector (EpiPen) 0.3 mg IM ONCE PRN bee stings 08/24/19 fluticasone propionate 50 mcg/actuation nasal spray,suspension (Flonase Allergy Relief) 1 spray intranasal BID health maintenance 08/24/19 potassium chloride 10 mEq tablet,extended release (Klor-Con) 10 meq PO BID 08/24/19 wzhjmepnrdaskcwurestvh-xujwqfaw-ixfsiedz 80 0.5 %-1 %-0.5 % eye drops (Refresh Optive Advanced) 1 drp ophthalmic (eye) 8-12XD PRN Dry Eye 08/14/20 fluoxetine 20 mg capsule 20 mg PO DAILY 08/14/20 multivitamin 1 tab PO DAILY 08/14/20 biotin 5 mg capsule 5 mg PO DAILY 03/10/23 spironolactone 25 mg tablet (Aldactone) 25 mg PO DAILY 03/10/23 calcium citrate 200 mg (950 mg) tablet 600 mg PO DAILY supplement 03/11/23 diclofenac sodium 1 % topical gel (Arthritis Pain (diclofenac)) 2 g topical Q6H PRN PRN Knee pain 03/11/23 meloxicam 7.5 mg tablet 7.5 mg PO DAILY PRN pain 03/11/23 amoxicillin 500 mg-potassium clavulanate 125 mg tablet (Augmentin) 1 tab PO TID #15 tabs 03/14/23 baclofen 10 mg tablet 20 mg (2 x 10 mg) PO HS #0 tabs 03/14/23 diazepam 2 mg tablet 2 mg PO TID PRN PRN Anxiety #9 tabs 03/14/23 gabapentin 100 mg capsule 200 mg (2 x 100 mg) PO 0200 #0 caps 03/14/23 gabapentin 400 mg capsule 400 mg PO TIDCM #0 caps 03/14/23 Hospital Course Operations - (Laparoscopic cholecystectomy) Procedures None Summary of Care Provided Minutes Spent on Discharge: 32 Hospital Course: This 63-year-old white female was seen in the emergency room at [facility] with complaints of right upper quadrant under her right ribs, the pain started after eating, she described the pain as dull and crampy. The pain subsequently localized to her right upper quadrant, patient was noted to be febrile in the emergency room, CTA of the chest was obtained which showed an enlarged and heterogeneous thyroid, it was a suboptimal exam for PE, small hiatal hernia was noted to be present. An abdomen and pelvis CT was obtained which showed findings consistent with acute cholecystitis with large stone deep in the neck, proximal gallbladder distention, wall thickening, and mild pericholecystic fluid. Patient was seen in consultation by general surgery, she was soon taken to surgery where laparoscopic cholecystectomy was performed. She subsequently was admitted to ICU for care, she did not require pressor agents during her stay in ICU. Patient improved and was transferred to [facility] for further care. Patient improved during her hospital stay, blood cultures remain negative. Patient underwent a thyroid ultrasound prior to her discharge, the results were not known prior to discharging back to her extended care facility. On 03/14/2023, patient was seen and examined:alert, oriented x3 and no apparent distress Constitutional Narrative: Patient is morbidly obese General Appearance: cooperative, well kempt and well developed Orientation / Consciousness: awake, oriented to person, oriented to place and oriented to time HEENT normocephalic, head/scalp atraumatic and moist oral mucous membranes Eyes PERRL, EOMs intact bilaterally and conjunctivae normal Neck supple, no JVD, thyroid normal and no carotid bruits General: trachea midline Resp normal respiratory effort, no retractions, no use of accessory muscles and clear to auscultation bilaterally Auscultation: Negative for rales, rhonchi or wheezes Cardio regular rate, regular rhythm, S1 normal heart sound, S2 normal heart sound, no murmurs, no rub and no gallops Extremity Extremity Narrative: Patient has generalized edema noted in her left hand, there is a slight contracture of her left hand noted Skin no rashes or lesions noted General Skin Exam: no breakdown Neuro oriented x3, CN's II-XII intact bilaterally and no sensory deficits noted Sensorium / Orientation: awake and alert Speech: speech normal Psych affect normal Patient appears stable for transfer back to her extended care facility in which she is a long-term resident. Notations remain on her transfer paperwork to follow-up with her primary care doctor regarding her thyroid scan. Weight / BMI Weight Weight: 131.5 kg Body Mass Index (BMI) 45.5 ABG / Lab / Microbiology Data 03/13/23 08:12 03/13/23 08:12 Microbiology: Microbiology 03/11/23 01:40 Blood Culture (Wb) - Anticubital Left Blood Culture - Preliminary No growth in 48 hours. 03/11/23 01:45 Blood Culture (Wb) - Anticubital Right Blood Culture - Preliminary No growth in 48 hours. 03/11/23 10:15 Urine Catheter - Elias Urine Culture - Final Culture exhibits no growth. Meaningful Use Info Meaningful Use Diagnoses (Choose all that apply): None applicable Discharge Plan Admission Admit Date/Time: 03/11/23 02:34 Primary Reason for Your Visit: Acute cholecystitis Attending Provider: Jonathan Goins Primary Care Provider: Umair Rosario Consulting Providers: Ran Boswell; Isreal Olivo; Artemio Ayala Instructions Additional Instructions / Restrictions: Patient will need follow-up with her family physician/attending concerning her thyroid ultrasound results which are pending at the time of the transfer back to intermediate care, patient had a 1.8 cm lesion in the right lobe of her thyroid which will be further defined on the thyroid ultrasound done on 03/14/2023. Discharge Orders/Prescriptions Prescriptions: New diazepam 2 mg Tablet 2 mg PO TID PRN PRN (Reason: Anxiety) Qty: 9 0RF gabapentin 400 mg Capsule 400 mg PO TIDCM Qty: 0 0RF baclofen 10 mg Tablet 20 mg PO HS Qty: 0 0RF gabapentin 100 mg Capsule 200 mg PO 0200 Qty: 0 0RF amoxicillin-pot clavulanate [Augmentin] 500-125 mg tablet 1 tab PO TID Qty: 15 0RF Rx Instructions: take with meals, take one tid with meals for 15 doses Continued furosemide [Lasix] 20 mg tablet 20 mg PO DAILY omeprazole 20 mg capsule,delayed release(DR/EC) 20 mg PO DAILY cholecalciferol (vitamin D3) 1,000 unit capsule 2,000 unit PO DAILY bisacodyl 10 mg suppository 10 mg RC DAILY PRN (Reason: Constipation) Culturelle 10 billion cell capsule 1 cap PO DAILY Rx Instructions: give with food (meal/snack) Excedrin Migraine 250-250-65 mg tablet 1 - 2 tab PO DAILY PRN (Reason: Migraine Symptoms) epinephrine [EpiPen] 0.3 mg/0.3 mL auto-injector 0.3 mg IM ONCE PRN (Reason: bee stings) Rx Instructions: as a single dose fluticasone propionate [Flonase Allergy Relief] 50 mcg/actuation spray,suspension 1 spray INTRANASAL BID Rx Instructions: administer into each nostril potassium chloride [Klor-Con 10] 10 mEq tablet extended release 10 meq PO BID fluoxetine 20 mg capsule 20 mg PO DAILY multivitamin Tablet 1 tab PO DAILY Refresh Optive Advanced 0.5-1-0.5 % drops 1 drp OPHTHALMIC 8-12XD PRN (Reason: Dry Eye) spironolactone [Aldactone] 25 mg tablet 25 mg PO DAILY biotin 5 mg capsule 5 mg PO DAILY calcium citrate 200 mg (950 mg) tablet 600 mg PO DAILY diclofenac sodium [Arthritis Pain (diclofenac)] 1 % gel 2 g topical Q6H PRN PRN (Reason: Knee pain) meloxicam 7.5 mg tablet 7.5 mg PO DAILY PRN (Reason: pain) Discontinued aspirin 81 mg tablet,delayed release (DR/EC) 81 mg PO DAILY Patient Comments: states was not told to hold preop baclofen 20 mg tablet 20 mg PO TID acetaminophen [Tylenol] 325 mg tablet 325 mg PO Q6H PRN (Reason: Pain Or Fever) diazepam [Valium] 2 mg tablet 2 mg PO TID PRN PRN (Reason: Anxiety) gabapentin 400 mg capsule 400 mg PO TID Biofreeze (menthol) 4 % gel 1 applic TOPICAL Q4H PRN PRN (Reason: Knee pain) albuterol sulfate 90 mcg/actuation HFA aerosol inhaler 2 puff INHALATION Q4H PRN (Reason: Sob &/Or Wheezing) fexofenadine [Christina Allergy] 60 mg tablet 180 mg PO Q24H PRN (Reason: Allergies) magnesium oxide 400 mg magnesium capsule 400 mg PO DAILY menthol-zinc oxide 0.15-1 % powder 1 ea TOPICAL TID gabapentin 100 mg capsule 200 mg PO DAILY zinc 50 mg capsule 50 mg PO DAILY benzonatate 100 mg capsule 100 mg PO Q6H PRN (Reason: cough) guaifenesin [Chest Congestion Relief] 400 mg tablet 400 mg PO Q4H PRN (Reason: chest congestion) senna-docusate sodium Tablet 1 tab PO .QAM senna-docusate sodium Tablet 2 tab PO QHS Referrals / Follow Up: Isreal Olivo MD [Med Staff - Active Staff] - In 1 Week Umair Rosario MD [Primary Care Provider] - Disposition Disposition (needs filled in before D/C Order can be placed): NonSkilled NH/Intermed Care Charges/Coding Visit Charges Inpatient E&M: 77693 Disch Hosp >30min
[2023-03-14 18:55] VITALS: BP 103/53; PULSE 73; RESP 18; TEMP 37; O2SAT 94
--- NOTE | 2023-03-14 20:35 | NURSING ---
Squad here to transport patient to [facility]. Report given to ems Ken.
== END 2023-03-14 20:45 | disposition intermediate care facility (04) | DRG 854 ==
LOC: ED 03-11 01:43 → ICU 03-11 02:48 → MS3 03-12 18:59
PROVIDERS: Surgery; Admitting Provider Hospitalist; Emergency Provider Emergency Medicine; PCP Family Medicine; Visit Provider Internal Medicine
PROC: 0FT44ZZ Resection of Gallbladder, Percutaneous Endoscopic Approach (ICD-10-PCS; CPT 47610; principal; 2023-03-11 05:30)
DX: A41.9 Sepsis, unspecified organism (principal); K81.0 Acute cholecystitis; G82.20 Paraplegia, unspecified; E87.20 Acidosis, unspecified; Z68.42 Body mass index [BMI] 45.0-49.9, adult; F32.A Depression, unspecified; E66.01 Morbid (severe) obesity due to excess calories; E07.9 Disorder of thyroid, unspecified; F41.9 Anxiety disorder, unspecified; K44.9 Diaphragmatic hernia without obstruction or gangrene; K59.03 Drug induced constipation; R65.20 Severe sepsis without septic shock; Z79.82 Long term (current) use of aspirin; Z79.899 Other long term (current) drug therapy
CPT/HCPCS: 36415; 36556; 71045; 71275; 74177; 76536; 80053; 81001; 83605; 83690; 84443; 84484; 85025; 85610; 85730; 87040; 87086; 88304; 93005; 97110; 97162; 97166; 97530; 97535; 99285; P9612; Q9967; A4216; C1751; J1938; J2405

== ENCOUNTER → 2023-05-07 | Outpatient (CLI) | payer MEDICARE, MEDICAID, SELFPAY ==
--- NOTE | 2023-05-07 14:12 | BI_ITS ---
MAMMOGRAPHY - BILATERAL SCREENING REASON FOR EXAM: Female, 63 years old. Routine annual screening examination. PERTINENT HISTORY: Mother with breast cancer. Grandmother with breast cancer. TECHNIQUE: Digital bilateral breast randy (3D mammographic acquisition) in the CC and MLO projections. 2-D mediolateral oblique (MLO) and craniocaudad (CC) views of both breasts were obtained. CAD: Full Field Digital Mammography with Computer Added Detection was performed. COMPARISON: Comparison is made with prior study dated June 01, 2019 and May 25, 2018. FINDINGS: Breast Composition: There are scattered areas of fibroglandular density. There are no dominant masses or suspicious calcifications. No other significant abnormalities are identified. There has been no significant change since the prior study. BI/SCRN MAMM (CAD)W/RANDY BILAT IMPRESSION: Stable bilateral screening mammogram. Yearly follow-up mammogram recommended. (A) ASSESSMENT CATEGORY: BIRADS Category 1: Negative. A letter regarding these results will be sent to the patient by the facility within 30 days. Approximately 10% of breast cancers are not detected by mammography. A normal mammogram should not delay biopsy of a clinically suspicious abnormality. [id number] Electronically Signed: Donny Kumari MD at 15:37 EDT ,
== END | disposition home or self-care (01) ==
PROVIDERS: PCP Family Medicine; Referring Provider Nurse Practitioner Family; Visit Provider Nurse Practitioner Family
DX: Z12.31 Encounter for screening mammogram for malignant neoplasm of breast (principal)
CPT/HCPCS: 77063; 77067

== ENCOUNTER → 2023-05-26 | Outpatient (CLI) | payer MEDICARE, MEDICAID, SELFPAY ==
--- NOTE | 2023-05-26 12:53 | BD_ITS ---
STUDY: DUAL ENERGY X-RAY ABSORPTIOMETRY / DXA REASON FOR EXAM: Female, 63 years old. 733.00OsteoporosisBONE DENSITY REASON FOR EXAM TECHNIQUE: Bone Mineral Density (BMD) measurements of lumbar spine and bilateral hips were obtained. COMPARISON: None. FINDINGS: Lumbar Spine (L1-L4): g/cm2 (0.984) / T-score (-0.6) / Z-score (0.9) Findings are suggestive of normal bone density with a low fracture risk. Left Femur Total: g/cm2 (0.846) / T-score (-0.8) / Z-score (0.2) Left Femoral Neck: g/cm2 (0.665) / T-score (-1.7) / Z-score (-0.3) Right Femur Total: g/cm2 (0.723) / T-score (-1.8) / Z-score (-0.8) Right Femoral Neck: g/cm2 (0.530) / T-score (-2.9) / Z-score (-1.5) BD/Dexa Bone Density Study IMPRESSION: The patient is considered osteoporotic as outlined below according to World Williams Organization (WHO) criteria with a high fracture risk. Reference Information: The T-score is the number of standard deviations above or below the standard which is normal for young adults at their peak bone mineral density. The World Health Organization (WHO) interprets the T-scores as follows: Above -1 Normal bone density Between -1 and -2.5 Osteopenia Equal to / or below -2.5 Osteoporosis As a practical clinical guideline, osteopenia may be graded as follows: Mild -1 through -1.5 Moderate -1.6 through -2.0 Severe -2.1 through -2.4 The Z-score is the number of standard deviations above or below age-matched controls. A Z-score of less than -1.5 would be considered abnormal. References: 1. NIH Osteoporosis and Related Bone Diseases www osteo.org 2. International Society for Clinical Densitometry www iscd.org 3. National Osteoporosis Foundation www nof.org Electronically Signed: Donny Kumari MD at 15:35 EST ,
== END | disposition home or self-care (01) ==
PROVIDERS: PCP Family Medicine; Referring Provider Nurse Practitioner Family; Visit Provider Nurse Practitioner Family
DX: M81.0 Age-related osteoporosis without current pathological fracture (principal)
CPT/HCPCS: 77080

== ENCOUNTER → 2024-03-04 | Outpatient (CLI) | payer MEDICARE, MEDICAID, SELFPAY ==
--- NOTE | 2024-03-04 14:01 | US_ITS ---
EXAM: US SOFT TISSUES HEAD AND NECK, THYROID CLINICAL INDICATION: goiter TECHNIQUE: Greyscale and color doppler imaging was performed of the thyroid gland. COMPARISON: 03/14/2023 FINDINGS: LEFT THYROID LOBE: The left thyroid lobe measures 5.5 x 3.5 x 3.8 cm. 2.3 cm left thyroid nodule. This nodule is solid or almost completely solid, hyperechoic or isoechoic, jlefw-zieq-vlhs, smoothly marginated and contains no echogenic foci. TI-RADS points: 3. TI-RADS category: TR3. This nodule is mildly suspicious. Recommend follow-up thyroid ultrasounds at 1, 3 and 5 years. 1.6 cm left thyroid nodule. This nodule is solid or almost completely solid, hyperechoic or isoechoic, islji-teip-cdhw, ill-defined and contains microcalcifications. TI-RADS points: 4. TI-RADS category: TR4. This nodule is moderately suspicious. Recommend FNA evaluation. 3.2 cm left thyroid nodule. This nodule is solid or almost completely solid, hyperechoic or isoechoic, hruzyw-mnrj-orbs, margins cannot be determined and contains no echogenic foci. TI-RADS points: 6. TI-RADS category: TR4. This nodule is moderately suspicious. Recommend FNA evaluation. 1.5 cm left thyroid nodule. This nodule is solid or almost completely solid, hyperechoic or isoechoic, tbxtp-yblv-eswt, ill-defined and contains no echogenic foci. TI-RADS points: 3. TI-RADS category: TR3. This nodule is mildly suspicious. Recommend follow-up thyroid ultrasounds at 1, 3 and 5 years. RIGHT THYROID LOBE: The right thyroid lobe measures 6.5 x 2.6 x 2.7 cm. 2.2 cm right upper pole thyroid nodule. This nodule is solid or almost completely solid, hyperechoic or isoechoic, mkpro-svel-ygdc, smoothly marginated and contains no echogenic foci. TI-RADS points: 3. TI-RADS category: TR3. This nodule is mildly suspicious. Recommend follow-up thyroid ultrasounds at 1, 3 and 5 years. 1.5 cm right upper pole thyroid nodule. This nodule is solid or almost completely solid, hyperechoic or isoechoic, utodx-rujx-japs, smoothly marginated and contains no echogenic foci. TI-RADS points: 3. TI-RADS category: TR3. This nodule is mildly suspicious. Recommend follow-up thyroid ultrasounds at 1, 3 and 5 years. 1.3 cm mid right thyroid nodule. This nodule is solid or almost completely solid, hyperechoic or isoechoic, ysidv-cfzc-oxnd, smoothly marginated and contains no echogenic foci. TI-RADS points: 3. TI-RADS category: TR3. This nodule is mildly suspicious. Recommend follow-up thyroid ultrasounds at 1, 3 and 5 years. 1.2 cm mid right thyroid nodule. This nodule is solid or almost completely solid, hyperechoic or isoechoic, ajujh-tzkl-zjav, ill-defined and contains no echogenic foci. TI-RADS points: 3. TI-RADS category: TR3. This nodule is mildly suspicious but no FNA or follow-up is necessary given the small size of this nodule. cm mid right thyroid nodule. This nodule is solid or almost completely solid, hypoechoic, kocvz-iuep-zxyz, ill-defined and contains no echogenic foci. TI-RADS points: 4. TI-RADS category: TR4. This nodule is moderately suspicious. Recommend follow-up thyroid ultrasounds at 1, 2, 3 and 5 years. ISTHMUS: The thyroid isthmus measures 0.7 cm. 1.2 cm thyroid isthmus nodule. This nodule is cystic or nearly completely cystic. TI-RADS points: 0. TI-RADS category: TR1. This nodule is benign and no FNA or follow-up is necessary. US/Thyroid IMPRESSION: 1. Multinodular goiter. 2. There are multiple bilateral thyroid nodules, it is difficult to precisely correlate these nodules with the prior examination. Some may have increased in size. Recommend FNA of the 1.6 cm left thyroid nodule in the 3.2 cm left thyroid nodule. As above, the next follow-up should be at one year if definitive management is not performed. Electronically Signed: Jose Cho DO at 21:24 EDT ,
== END | disposition home or self-care (01) ==
LOC: US 13:58
PROVIDERS: PCP Family Medicine; Referring Provider Surgery; Visit Provider Surgery
DX: E04.9 Nontoxic goiter, unspecified (principal)
CPT/HCPCS: 76536

== ENCOUNTER → 2024-03-15 | Outpatient (CLI) | payer MEDICARE, MEDICAID, SELFPAY ==
--- NOTE | 2024-03-11 15:07 | FLU_PTH ---
PATIENT: CLAIRE HUANG [facility] U#:[id number] AGE/SX: 64/F ROOM: RE03/15/[address]: Dr. Kevin Aquino MD : 1960 BED: DIS: 03/15/2024 SPEC #: [id number] RECD: 03/15/24 07:52 STATUS: ANANDA RONNI #: [id number] SE: 03/11/24 15:[address]: Kevin Aquino DEPT: CYTOLOGY RECD BY: Regina Jackson ENTERED: 03/15/24 09:25 SP TYPE: Fluid OTHR DR: Dr. Umair Rosario MD Tissues: A - Thyroid gland, NOS B - Thyroid gland, NOS C - Thyroid gland, NOS D - Thyroid gland, NOS E - Thyroid gland, NOS F - Thyroid gland, NOS Procedures: Special Stain Group II Surgery Specimen Level IV Cytospin Fluid Cytology Other HEADER OPERATION: Fine needle aspiration of thyroid nodules x3 PRE-OP DIAGNOSIS: Thyroid nodules TISSUE SUBMITTED: A- Left lower deep thyroid nodule fluid, B- Left lower deep thyroid slides, C- Left lower inferior thyroid nodule fluid, D-Left lower inferior thyroid nodule slides, E- Right upper thyroid nodule fluid, F- Right upper thyroid nodule slides DIAGNOSIS CYTOLOGY A. Left lower deep thyroid nodule fluid, fine needle aspiration (cytospin and cellblock): Negative for malignant cells. See comment. B. Left lower deep thyroid nodule, fine needle aspiration (smears): Consistent with benign follicular/colloid nodule, Elmo Category II. Adequate for evaluation. C. Left inferior thyroid nodule fluid, fine needle aspiration (cytospin and cellblock): Negative for malignant cells. See comment. D. Left inferior thyroid nodule, fine needle aspiration (smears): Non-diagnostic specimen. Elmo Category I. See comment. E. Right upper thyroid nodule fluid, fine needle aspiration (cytospin and cellblock): Consistent with benign follicular/colloid nodule with cystic changes, Elmo Category II. Adequate for evaluation. F. Right upper thyroid nodule, fine needle aspiration (smears): Consistent with benign follicular/colloid nodule with cystic changes. Adequate for evaluation. See comment. 03/16/2024 COMMENT A. The specimen is pacicellular and consists of a few macrophages and benign follicular cells. C. The specimen consists of rare macrophages. D. The specimen is non-diagnosed due to lack of adequate number of follicular cells. The specimen consists of scant colloid and macrophages. F. The specimen is cellular and may represent adenomatoid colloid nodule. Rare Hurthle cells are also noted. Correlation with clinical, radiologic findings and appropriate follow up are necessary. The Elmo System for thyroid diagnostic categorization was used in the evaluation of this case. CYTOLOGY STUDY Slides are reviewed. CYTOLOGY GROSS A. Received is 30.5 ml of red cloudy fluid labeled with the patient's name and and designated per the requisition as Left lower deep thyroid nodule. Submitted for cytology preparation including cell block. B. Received are 4 smears labeled with the patient's name and designated per the requisition as Left lower deep thyroid nodule. Submitted for staining. C. Received is 30.5 ml of dark-red fluid labeled with the patient's name and and designated per the requisition as Left lower inferior thyroid nodule. Submitted for cytology preparation including cell block. D. Received are 4 smears labeled with the patient's name and designated per the requisition as Left lower inferior thyroid nodule. Submitted for staining. E. Received is 30.5 ml of red fluid labeled with the patient's name and and designated per the requisition as Right upper thyroid nodule. Submitted for cytology preparation including cell block. F. Received are 4 smears labeled with the patient's name and designated per the requisition as Right upper thyroid nodule. Submitted for staining. Mr 03/15/2024 TC:5 CPT: [id number]
== END | disposition home or self-care (01) ==
LOC: LABSPEC 08:06
PROVIDERS: PCP Family Medicine; Referring Provider Surgery; Visit Provider Surgery
DX: E04.1 Nontoxic single thyroid nodule (principal)
CPT/HCPCS: 88108; 88161; 88305; 88313

== ENCOUNTER → 2024-04-06 | Outpatient (CLI) | payer MEDICARE, MEDICAID, SELFPAY ==
--- NOTE | 2024-04-06 07:39 | NM_ITS ---
CLINICAL: 64-year-old female with history of thyroid nodularity. I-123 THYROID UPTAKE and SCAN COMPARISON: Thyroid ultrasound report 04/06/2024 FINDINGS: The patient was administered a 325 uCi I-123 capsule by mouth. The 4-hour I-123 radioactive iodine thyroidal uptake was calculated to be 20.8 % (normal 5 to 25 %). The 24-hour I-123 radioactive iodine thyroidal uptake was calculated to be 45.1 % (normal 5 to 40 %). The I-123 thyroid scan demonstrates questionable decreased concentration of radiopharmaceutical identified in the inferior lateral aspect of the right lobe thyroid colloid with otherwise homogeneous radiopharmaceutical concentration throughout the remaining right and left lobe thyroid parenchyma. NM/Thyroid Uptake Single or Mult IMPRESSION: 1. NORMAL 4- and ELEVATED 24-hour I-123 radioactive iodine thyroidal uptakes. Correlation with in vitro thyroid function studies may be of benefit. 2. The I-123 thyroid scan is consistent with a questionable hypofunctioning region involving the inferior lateral aspect of the right lobe thyroid colloid. Histopathologic sampling may be indicated. Electronically Signed: Itz Cole DO at 12:56 EDT ,
== END | disposition home or self-care (01) ==
LOC: NM 07:37
PROVIDERS: PCP Family Medicine; Referring Provider Surgery; Visit Provider Surgery
DX: E04.9 Nontoxic goiter, unspecified (principal); E05.90 Thyrotoxicosis, unspecified without thyrotoxic crisis or storm
CPT/HCPCS: 78012; A9516

== ENCOUNTER → 2024-04-07 | Outpatient (CLI) | payer MEDICARE, MEDICAID, SELFPAY ==
--- NOTE | 2024-04-07 07:39 | CT_ITS ---
STUDY: CT SOFT TISSUE NECK WITH CONTRAST REASON FOR EXAM: Female, 64 years old. Thyroid nodules -- IV contrast RADIATION DOSAGE (If Supplied By Facility): CTDIvol = ( 19.26 ) mGy, DLP = ( 635.23 ) mGycm TECHNIQUE: The patient was scanned in a multi-detector CT scanner. High resolution transaxial imaging was performed following intravenous administration of IV 75mL Isovue-370. Sagittal and coronal images were reconstructed. Individualized dose optimization techniques were used for this CT. COMPARISON: None. FINDINGS: Normal bilateral parotid glands. Normal bilateral sock knitter spaces. Normal bilateral parapharyngeal spaces. Normal bilateral carotid spaces. Normal bilateral sublingual and submandibular glands and spaces. Normal visualized nasopharynx. Normal retropharyngeal space. Normal perivertebral space. Normal visualized bilateral faucial tonsils. The visualized tongue, tongue base and oropharynx are normal. There are minimally enlarged lymph nodes of the neck, with preservation of normal asya architecture, consistent with a reactive lymph hyperplasia. There is no demonstrated solid or cystic mass lesion. There is no abnormal contrast enhancement. Normal epiglottis, bilateral vallecula and hypopharynx. The pre-epiglottic and paraglottic adipose spaces are normal. Normal visualized bilateral piriform sinuses, aryepiglottic folds, vocal cords, and arytenoid-cricoid articulations. Normal subglottic trachea. There is heterogeneous enlargement of both lobes of the thyroid gland worse on the left side. Hypodense nodules are seen throughout especially on the left side extending to the left side of the isthmus. There is evidence of a left-sided substernal extension of the thyroid. Normal visualized pulmonary apices. Mild degree of a right maxillary sinus thickening. Prior lower cervical fusion. CT/Soft Tissue Neck WITH Contrast IMPRESSION: Diffuse enlargement of the thyroid gland more prominent on the left side with left substernal extension. Multiple hypodense nodules are seen worse on the left side with focal calcification anteriorly. Hypodense nodules also seen in the left side of the isthmus. Electronically Signed: Donny Kumair MD at 10:11 EDT ,
== END | disposition home or self-care (01) ==
LOC: CT 07:38
PROVIDERS: PCP Family Medicine; Referring Provider Surgery; Visit Provider Surgery
DX: E05.90 Thyrotoxicosis, unspecified without thyrotoxic crisis or storm (principal); E04.1 Nontoxic single thyroid nodule
CPT/HCPCS: 70491; Q9967

== ENCOUNTER → 2024-11-21 | Outpatient (CLI) | payer MEDICARE, MEDICAID, SELFPAY ==
--- NOTE | 2024-11-21 12:23 | BI_ITS ---
EXAM: SCRN MAMM (CAD)W/RANDY BILAT DATE: 11/21/2024 CLINICAL HISTORY: F, Age 64 y/o , SCREENING BREAST CANCER RISK ASSESSMENT: Has not been calculated. TECHNIQUE: Bilateral screening digital breast tomosynthesis with 2D and 3D images. Computer aided detection. COMPARISON: Prior exam(s) dated 05/07/2023, 06/01/2019, and 05/25/2018. FINDINGS: TISSUE DENSITY: The breast tissue is almost entirely fatty. Bilateral Breast Mammographic Findings: Benign-appearing round calcifications are seen in both breasts. Benign- appearing secretory type calcifications are seen in both breasts. No suspicious masses, suspicious cluster of microcalcifications, architectural distortion or secondary signs of malignancy is identified in either breast. BI/SCRN MAMM (CAD)W/RANDY BILAT IMPRESSION: OVERALL FINAL ASSESSMENT: BIRADS 2 BENIGN FINDING RECOMMENDATION: Routine annual follow-up in 1 Year A letter with findings and recommendations will be mailed to the patient. Reading Location: [id number]
== END | disposition home or self-care (01) ==
PROVIDERS: PCP Family Medicine; Referring Provider Nurse Practitioner Family; Visit Provider Nurse Practitioner Family
DX: Z12.31 Encounter for screening mammogram for malignant neoplasm of breast (principal)
CPT/HCPCS: 77063; 77067

== ENCOUNTER → 2024-11-28 | Outpatient (CLI) | payer MEDICARE, MEDICAID, SELFPAY ==
--- NOTE | 2024-11-28 11:39 | US_ITS ---
PROCEDURE: THYROID 11/28/2024 REASON FOR EXAM: THYROTOXICOSIS WITH TOXIC MULTINODULAR GOITER WITHOUT THYROTOXIC TECHNIQUE: High-frequency thyroid ultrasound, including grayscale and color-flow images. REFERENCE LINKS: TI-RADS Chart: [email or web address] TI-RADS Calculator Tool with Reference Images: [email or web address] COMPARISON: March 04, 2024. FINDINGS: Right thyroid lobe size: 8.6 cm x 2.7 cm x 3.2 cm cm Left thyroid lobe size: 9.6 cm 3.9 cm x 4.6 cm cm Isthmus: 0.9 cm Background parenchymal echotexture is heterogeneous Nodules: There is a dominant 2.1 cm x 1.6 cm 1.4 cm complex nodule in the upper pole of the right lobe. There is also evidence of a 1.4 cm x 1.4 cm x 1.2 cm slightly echogenic nodule in the midportion as well as a 1.3 cm x 1.2 cm x 0.9 cm complex nodule in the inferior portion of the right lobe. There has been essentially unchanged as compared to prior study. Once again, there is a complex solid nodule measuring 2.1 cm x 1.9 cm x 1.8 cm midportion of the left lobe of the thyroid. Stable 1.8 cm x 2 cm x 1.5 cm complex nodule in the upper pole as well as a complex nodule in the midpole measuring 1.4 cm x 1 cm x 1.1 cm. There is a 1.1 cm x 1.1 cm x 0.8 cm cyst in the left side of the isthmus. US/Thyroid IMPRESSION: Diffuse enlargement of both lobes of the thyroid gland with multiple stable com plex nodules. RECOMMENDATION: Based on most suspicious nodule. Nodule size = largest diameter Only evaluate nodule if =>5 mm. Growth > 20% in 2 dimensions = worsening. Follow up to 4 nodules. Recommend biopsy for no more than 2 nodules. Reading Location: [place] [id number]
== END | disposition home or self-care (01) ==
LOC: US 11:37
PROVIDERS: PCP Family Medicine; Referring Provider Nurse Practitioner Family; Visit Provider Nurse Practitioner Family
DX: E05.20 Thyrotoxicosis with toxic multinodular goiter without thyrotoxic crisis or storm (principal)
CPT/HCPCS: 76536

== ENCOUNTER → 2025-04-07 | Outpatient (REF) | payer MEDICARE, MEDICAID, SELFPAY ==
[2025-04-08 07:42] LABS: Creatinine, Urine (random) 107.00 mg/dL (28.00-217.00); Microalbumin,Random Urine < 12.0 mg/L (<20 mg/L)
== END ==
LOC: OLS.AVEC 01:11
PROVIDERS: PCP Family Medicine; Referring Provider Internal Medicine Endocrinology, Diabetes & Metabolism; Visit Provider Internal Medicine Endocrinology, Diabetes & Metabolism
DX: E11.65 Type 2 diabetes mellitus with hyperglycemia (principal); E78.2 Mixed hyperlipidemia; E05.20 Thyrotoxicosis with toxic multinodular goiter without thyrotoxic crisis or storm
CPT/HCPCS: 82043; 82570